=== PATIENT | male | born 1940 | race American Indian/Alaskan Native ===

== ENCOUNTER 2018-06-04 10:02 | Day surgery (SDC) | payer BC, MEDICARE ==
[2016-04-17 11:50] VITALS: PULSE 220
[2018-05-27 13:25] VITALS: BMI 21.1
[2018-06-04 11:21] LABS: BASO # 0.04 K/mm3 (0.0-2.0); BASO % 0.5 % (0.0-3.0); EOS # 0.1 (0.0-0.7); GRAN # 6.51 (1.4-6.5); GRAN % 77.3 % (50.0-68.0); LYMPH # 1.2 (1.2-3.4); LYMPH % 14.1 % (22.0-35.0); MEAN CELL VOLUME 76.2 fl (80.0-105.0); MEAN CORPUSCULAR HEMOGLOBIN 26.1 pg (25.0-35.0); MEAN CORPUSCULAR HGB CONC 34.2 g/dl (31.0-37.0); MEAN PLATELET VOLUME 10.2 fl (7.0-11.0); MONO # 0.6 (0.1-0.6); MONO % 7.1 % (1.0-6.0); RBC 3.83 10^6/uL (3.5-6.1); RED CELL DISTRIBUTION WIDTH 17.7 % (11.5-14.5); WHITE BLOOD COUNT 8.4 10^3/ul (4.5-11.0)
[2018-06-04 13:13] LABS: INR 1.18; PARTIAL THROMBOPLASTIN TIME 28.3 Seconds (25.1-36.5); PROTHROMBIN TIME 13.5 SECONDS (9.4-12.5)
[2018-06-04] MEDS ORDERED: Propofol 10 mg/ml Inj (20 ML) ONE (13:32)
[2018-06-04] MEDS ORDERED: Labetalol 5 mg/ml Inj 20ML ONE (13:32)
[2018-06-04 13:42] VITALS: O2SAT 100
[2018-06-04] MEDS ORDERED: Sodium Chloride 0.9% 1,000 ML IV SCH (14:30)
[2018-06-04 15:35] VITALS: PULSE 67; RESP 17; TEMP 97.6
[2018-06-04 15:36] VITALS: BP 139/86
== END 2018-06-04 15:49 | disposition home or self-care (01) ==
LOC: ENDO 10:02
PROVIDERS: ATTEND Internal Medicine Gastroenterology
DX: Z12.11 Encounter for screening for malignant neoplasm of colon (principal); Z85.038 Personal history of other malignant neoplasm of large intestine; K57.30 Diverticulosis of large intestine without perforation or abscess without bleeding; K64.8 Other hemorrhoids
CPT/HCPCS: 36415; 45378; 85025; 85610; 85730; J2704; J7030

== ENCOUNTER 2018-11-01 08:23 | Day surgery (SDC) | payer BC, MEDICARE ==
[2016-04-17 11:50] VITALS: PULSE 220
[2018-05-27 13:25] VITALS: BMI 21.1
[2018-11-01 09:27] LABS: BASO # 0.03 K/mm3 (0.0-2.0); BASO % 0.4 % (0.0-3.0); EOS # 0.2 (0.0-0.7); EOS % 2.7 % (1.5-5.0); HEMOGLOBIN 8.9 g/dL (14.0-18.0); LYMPH % 28.5 % (22.0-35.0); MEAN CELL VOLUME 74.7 fl (80.0-105.0); MEAN CORPUSCULAR HEMOGLOBIN 25.3 pg (25.0-35.0); MEAN CORPUSCULAR HGB CONC 33.8 g/dl (31.0-37.0); MEAN PLATELET VOLUME 9.7 fl (7.0-11.0); MONO # 0.6 (0.1-0.6); MONO % 8.5 % (1.0-6.0); RBC 3.52 10^6/uL (3.5-6.1); RED CELL DISTRIBUTION WIDTH 18.2 % (11.5-14.5); WHITE BLOOD COUNT 7.1 10^3/uL (4.5-11.0)
[2018-11-01 09:36] LABS: INR 1.21; PARTIAL THROMBOPLASTIN TIME 30.9 Seconds (26.9-38.3); PROTHROMBIN TIME 13.7 SECONDS (9.4-12.5)
[2018-11-01] MEDS ORDERED: Midazolam 2 MG/2 ML VIAL ONE (10:58)
[2018-11-01] MEDS ORDERED: Propofol 10 mg/ml Inj (20 ML) ONE (10:58)
[2018-11-01] MEDS ORDERED: Sodium Chloride 0.9% 1,000 ML IV SCH (11:30)
[2018-11-01 12:00] VITALS: PULSE 58
[2018-11-01 12:31] VITALS: BP 139/75; RESP 16; TEMP 97.9; O2SAT 58
== END 2018-11-01 13:39 | disposition home or self-care (01) ==
LOC: ENDO 08:23
PROVIDERS: ATTEND Internal Medicine Gastroenterology
DX: D64.9 Anemia, unspecified (principal); I25.10 Atherosclerotic heart disease of native coronary artery without angina pectoris; I48.91 Unspecified atrial fibrillation; Z85.038 Personal history of other malignant neoplasm of large intestine; Z79.01 Long term (current) use of anticoagulants; I12.9 Hypertensive chronic kidney disease with stage 1 through stage 4 chronic kidney disease, or unspecified chronic kidney disease; N18.9 Chronic kidney disease, unspecified
CPT/HCPCS: 36415; 43235; 85025; 85610; 85730; J2001; J2250; J2704; J7030; J7040

== ENCOUNTER 2019-01-12 12:27 | Inpatient (IN) | payer BC, MEDICARE ==
[2019-01-12 12:28] VITALS: PULSE 220
--- NOTE | 2019-01-12 13:32 | ED PDOC ---
Arrival/HPI - General Historian: Patient - History of Present Illness Narrative History of Present Illness (Text): 01/12/19 13:20 Patient is a 78yo M with PMH CAD s/p stent 2005, A.fib on coumadin, colon CA s/p resection and chemo 2012, CKD presents to ED with dizziness. Triage note reviewed, patient stating he felt generalized weakness and fatigue, but denies focal weakness in muscle use. He reports feeling dizzy when getting up and walking around this morning at 9am. He claims that the dizziness was mild and describes it as the room slightly spinning. He denies loss of consciousness or fall. He reports associated tingling in the L side of his face but denies difficulty eating or swallowing, slurred speech, or facial drooping. He also reports numbness in the L hand that began at the same time as the dizziness. He denies focal weakness. He reports a headache last night which was mild and resolved with tylenol. He reports resolution of all symptoms at this time, denying any current numbness, dizziness, or headache. He denies any gait changes, blurry vision, chest pain, palpitations, shortness of breath, nausea, vomiting, diarrhea, dysuria, blood in stool or urine. He reports taking his medications daily as prescribed and eating food and hydrating adequately. Time/Duration: 4-6 hours Symptom Onset: Sudden Symptom Course: Resolved Quality: Other (dizziness) Severity Level: Mild Activities at Onset: Other (walking) <Zayda Curiel - Last Filed: 01/12/19 18:57> <Peg Barry - Last Filed: 01/20/19 09:50> - General Chief Complaint: Dizziness/Lightheaded Time Seen by Provider: 01/12/19 13:05 Past Medical History - Tetanus Immunization Tetanus Immunization: Unknown - Cardiac Hx Atrial Fibrillation: Yes Hx Hypertension: Yes Hx Pacemaker: No - Neurological Hx Paralysis: No - HEENT Hx Epistaxis: Yes (NOSEBLEED IN PAST) - Renal Hx Renal Disorder: (low functioning kidneys) - Hematological/Oncological Hx Blood Transfusions: Yes Hx Blood Transfusion Reaction: No - Musculoskeletal/Rheumatological Hx Musculoskeletal Disorders: Yes - Gastrointestinal Hx Gastroesophageal Reflux: Yes - Genitourinary/Gynecological Hx Prostate Problems: Yes (enlarged) - Psychiatric Hx Emotional Abuse: No Hx Physical Abuse: No Hx Substance Use: No - Surgical History Hx Cardiac Catheterization: Yes Hx Coronary Stent: Yes - Anesthesia Hx Anesthesia Reactions: No Hx Malignant Hyperthermia: No - Suicidal Assessment Feels Threatened In Home Enviroment: No <Kaylynnmary katekeltonSusannahuanmatthew - Last Filed: 01/12/19 18:57> Family/Social History Family/Social History: Diabetes, CAD/[place] Smoking Status: Never Smoked Hx Alcohol Use: Yes (SOCIAL) Hx Substance Use: No Hx Substance Use Treatment: No <Zayda Curiel - Last Filed: 01/12/19 18:57> Allergies/Home Meds <Zayda Curiel - Last Filed: 01/12/19 18:57> <Peg Barry - Last Filed: 01/20/19 09:50> Allergies/Adverse Reactions: Allergies acetaminophen [From Percocet] Allergy (Verified 10/28/18 16:52) RASH metronidazole [From Flagyl] Allergy (Verified 10/28/18 16:52) RASH neomycin Allergy (Verified 10/28/18 16:52) RASH oxycodone [From Percocet] Allergy (Verified 10/28/18 16:52) RASH Home Medications: Home Meds Medication Instructions Recorded Confirmed Warfarin [Coumadin] 5 mg PO DAILY 03/31/13 01/12/19 Folic Acid 1 tab PO DAILY 05/27/18 01/12/19 Sodium Bicarbonate Tab 1 tab PO BID 05/27/18 01/12/19 Amiodarone [Cordarone] 100 mg PO DAILY 06/04/18 01/12/19 Multivit-Min/FA/Lycopen/Lutein 1 each PO DAILY 06/04/18 01/12/19 [Centrum Silver Men Tablet] Metoprolol Succinate XL [Toprol XL] 50 mg PO DAILY 10/28/18 01/12/19 Review of Systems - Review of Systems Constitutional: Fatigue Eyes: Normal. absent: Vision Changes ENT: Normal. absent: Hearing Changes, Tinnitus Respiratory: Normal. absent: SOB Cardiovascular: Normal. absent: Chest Pain, Palpitations, Syncope Gastrointestinal: Normal. absent: Abdominal Pain, Diarrhea, Nausea, Vomiting, Hematochezia, Food Intolerance Genitourinary Male: Normal. absent: Dysuria, Hematuria Musculoskeletal: Normal. absent: Neck Pain Skin: Normal Neurological: Normal. absent: Headache, Dizziness, Focal Weakness, Gait Ivzcaino es, Speech Changes, Facial Droop Endocrine: Normal Hemo/Lymphatic: Normal Psychiatric: Normal <Susanna Curielmeliton - Last Filed: 01/12/19 18:57> Physical Exam Vital Signs Reviewed: Yes Vital Signs Temp Pulse Resp BP Pulse Ox 01/12/19 12:28 97.4 F L 60 18 210/112 H 100 Temperature: Afebrile Blood Pressure: Hypertensive Pulse: Regular Respiratory Rate: Normal Appearance: Positive for: Well-Appearing Pain Distress: None Finger Stick Blood Glucose: 84 - Systems Exam Head: Present: Atraumatic, Normocephalic Pupils: Present: PERRL Extroacular Muscles: Present: EOMI Conjunctiva: Present: Normal Mouth: Present: Moist Mucous Membranes Neck: Present: Normal Range of Motion Respiratory/Chest: Present: Clear to Auscultation, Good Air Exchange. No: Respiratory Distress, Accessory Muscle Use Cardiovascular: Present: Regular Rate and Rhythm, Normal S1, S2. No: Murmurs, Rub, Gallop Abdomen: Present: Normal Bowel Sounds. No: Tenderness, Distention, Peritoneal Signs Upper Extremity: Present: Normal Inspection, Normal ROM, Neurovascularly Intact, Norm 2-Pt Discrimination. No: Cyanosis, Edema, Tenderness, Swelling, Erythema Lower Extremity: Present: Normal Inspection, Normal ROM, Neurovascularly Intact. No: Edema, CALF TENDERNESS, Cyanosis, Erythema, Deformity Neurological: Present: GCS=15, CN II-XII Intact, Speech Normal, Motor Func Grossly Intact, Normal Sensory Function, Norm Deep Tendon Reflexes Skin: Present: Warm, Normal Color. No: Dry, Rashes Psychiatric: Present: Alert, Oriented x 3, Normal Insight, Normal Concentration <VeenaSusannameliton - Last Filed: 01/12/19 18:57> Vital Signs Temp Pulse Resp BP Pulse Ox 01/12/19 12:28 97.4 F L 60 18 210/112 H 100 <Peg Barry - Last Filed: 01/20/19 09:50> Medical Decision Making ED Course and Treatment: 01/12/19 13:50 DDX: TIA vs CVA, vertebral artery insufficiency, orthostatic hypotension Code Stroke -CT head w/o contrast -CBC/CMP -lipid panel -troponins -f/u Neurohospitalist recs -EKG: NSR @62bpm 01/12/19 14:02 Dr. Grover called at 13:55, requesting MRI brain w/o contrast and CTA head/neck 01/12/19 14:26 CT head read, no acute intracranial abnormalities as per official report. 01/12/19 14:51 Patient remains hypertensive, will give Hydralazine 10mg IVP 01/12/19 15:09 BP improved to 202/98. 01/12/19 15:35 K+ 6.2 Cr 8.8 Will give amp D50, amp sodium bicarb, amp Calcium gluconate, albuterol, and 10u insulin 01/12/19 15:[address] Yates who accepts this admission. 01/12/19 16:[address] Grover at 14:05 discussed MRI findings of small L anterior frontal infarcts. BP 177/97 at this time. As per Dr. Grover, goal BP 180/90. <Zayda Curiel - Last Filed: 01/12/19 18:57> ED Course and Treatment: NIH score 0 at time of presentation to the ED. Patient had minimal symptoms of tingling in left hand and left side of face which had resolved upon arrival to the ED. Patient declined ASA. 01/12/19 14:19 Patient Seen with Resident: In agreement with resident note which contains more details about the patient. Patient seen and evaluated with resident. Came up with plan and treatment together. 01/20/19 09:49 - RAD Interpretation Radiology Orders: 01/12/19 13:33 CHEST PORTABLE [RAD] Stat 01/12/19 13:41 HEAD W/O (CODE STROKE) [CT] Stat 01/12/19 14:00 CTA HEAD/NECK CODE STROKE [CT] Stat BRAIN WITHOUT CONTRAST [MRI] Stat - Medication Orders Current Medication Orders: Sodium Chloride (Sodium Chloride 0.9%) 1,000 mls @ 100 mls/hr IV .Q10H DILSHAD Discontinued Medications Labetalol HCl (Trandate) 10 mg IV STAT STA Stop: 01/12/19 13:48 <Peg Barry - Last Filed: 01/20/19 09:50> NIHSS Scale ([place]) Time Performed: 01:20 - Notes Notes: NIHSS score 0 <Zayda Curiel - Last Filed: 01/12/19 18:57> rTPA Inclusion/Exclusion - Inclusion Criteria for Altepase All of the below criteria for inclusion were reviewed: No Patient is 18 years or Older: Yes The Clinical Diagnosis of Ischemic Stroke That is Causing a Potentially Disabling Neurological Deficit: No Time of Onset is Well Established to be Less Than 270 Minute Before Treatment Would Begin: Yes Risk/Benefit Discussed With Patient/Family Member Present: No - Exclusion Criteria for Altepase Current Intracranial Hemorrhage: No Subarachnoid hemorrhage: No Active Internal Bleeding: No Recent (within 3 months) Intracranial or Intraspinal Surgery: No Bleeding Diathesis Including but not limited to: Current use of oral anticoagulants w/ INR greater than 1.7 Current Severe Uncontrolled Hypertension: Yes - Warning to TPA With Conditions Following Conditions Weighed Against Anticipated Benefit: Yes Condition: Hypertension systolic BP above 175 mmHg or diastolic BP above 110 mmHg, Patients currently receiving anticoagulants Additional Condition (For 3-4.5 Hour Window): Any anticoagulant use prior to admission (Even if INR less than 1.7) <Peg Barry - Last Filed: 01/20/19 09:50> - PA / BLENDING OPERATOR / Resident Statement ADRYAN has reviewed & agrees with the documentation as recorded. ADRYAN has examined the patient and agrees with the treatment plan. <Peg Barry - Last Filed: 01/20/19 09:50> Disposition/Present on Arrival - Present on Arrival Any Indicators Present on Arrival: No History of DVT/PE: No History of Uncontrolled Diabetes: No Urinary Catheter: No History of Decub. Ulcer: No History Surgical Site Infection Following: None - Disposition Have Diagnosis and Disposition been Completed?: Yes Disposition Time: 16:00 <Zayda Curiel - Last Filed: 01/12/19 18:57> <Peg Barry - Last Filed: 01/20/19 09:50> - Disposition Diagnosis: CVA (cerebral vascular accident), Hyperkalemia Disposition: HOSPITALIZED Patient Problems: Current Active Problems Problem Status Onset CVA (cerebral vascular accident) Acute ESRD (end stage renal disease) Chronic Hyperkalemia Resolved Condition: STABLE
[2019-01-12] MEDS ORDERED: Labetalol 5 mg/ml Inj 20ML IV STA (13:47)
[2019-01-12] MEDS ORDERED: Iodixanol 320 MG/ML 100 ML BOTTLE IV ONE ×2 (14:15)
--- NOTE | 2019-01-12 14:24 | RAD ---
HISTORY: Code Stroke COMPARISON: Chest x-ray performed 09/09/13 TECHNIQUE: Chest, one view. FINDINGS: LUNGS: No focal consolidation. Please note that chest x-ray has limited sensitivity for the detection of pulmonary masses. PLEURA: No significant pleural effusion identified. No definite pneumothorax . CARDIOVASCULAR: Heart size appears within normal limits. Atherosclerotic calcifications of the aortic knob. OSSEOUS STRUCTURES: No acute osseous abnormality identified. VISUALIZED UPPER ABDOMEN: Unremarkable. OTHER FINDINGS: None. IMPRESSION: No acute findings identified.
[2019-01-12 14:38] LABS: BASO # 0.06 K/mm3 (0.0-2.0); BASO % 1.1 % (0.0-3.0); EOS # 0.2 (0.0-0.7); EOS % 4.1 % (1.5-5.0); HEMOGLOBIN 12.9 g/dL (14.0-18.0); LYMPH % 35.2 % (22.0-35.0); MEAN CELL VOLUME 74.5 fl (80.0-105.0); MEAN CORPUSCULAR HEMOGLOBIN 24.7 pg (25.0-35.0); MEAN CORPUSCULAR HGB CONC 33.2 g/dl (31.0-37.0); MEAN PLATELET VOLUME 9.3 fl (7.0-11.0); MONO # 0.5 (0.1-0.6); MONO % 9.4 % (1.0-6.0); RBC 5.22 10^6/uL (3.5-6.1); WHITE BLOOD COUNT 5.7 10^3/uL (4.5-11.0)
[2019-01-12 14:47] LABS: INR 2.37; PARTIAL THROMBOPLASTIN TIME 36.8 Seconds (26.9-38.3); PROTHROMBIN TIME 26.3 SECONDS (9.4-12.5)
[2019-01-12] MEDS: Sodium Chloride 0.9% 1,000 ML IV SCH (14:54)
[2019-01-12 14:59] LABS: LDL CHOLESTEROL 111 mg/dL (0-129)
[2019-01-12 15:02] LABS: TROPONIN I < 0.01 ng/mL
[2019-01-12 15:21] LABS: ALB/GLOB RATIO 1.1 (1.1-1.8); ALBUMIN 4.4 g/dL (3.0-4.8); ALT/SGPT 7 U/L (7-56); AST/SGOT 24 U/L (17-59); BLOOD UREA NITROGEN 44 mg/dL (7-21); CALCIUM 7.9 mg/dL (8.4-10.5); GFR NON-AFRICAN AMERICAN 6; HDL CHOLESTEROL 89 mg/dL (29-60)
--- NOTE | 2019-01-12 15:21 | ED PDOC ---
Arrival/HPI - General Chief Complaint: Dizziness/Lightheaded Time Seen by Provider: 01/12/19 13:05 Past Medical History - Tetanus Immunization Tetanus Immunization: Unknown - Cardiac Hx Atrial Fibrillation: Yes Hx Hypertension: Yes Hx Pacemaker: No - Neurological Hx Paralysis: No - HEENT Hx Epistaxis: Yes (NOSEBLEED IN PAST) - Renal Hx Renal Disorder: (low functioning kidneys) - Hematological/Oncological Hx Blood Transfusions: Yes Hx Blood Transfusion Reaction: No - Musculoskeletal/Rheumatological Hx Musculoskeletal Disorders: Yes - Gastrointestinal Hx Gastroesophageal Reflux: Yes - Genitourinary/Gynecological Hx Prostate Problems: Yes (enlarged) - Psychiatric Hx Emotional Abuse: No Hx Physical Abuse: No Hx Substance Use: No - Surgical History Hx Cardiac Catheterization: Yes Hx Coronary Stent: Yes - Anesthesia Hx Anesthesia Reactions: No Hx Malignant Hyperthermia: No - Suicidal Assessment Feels Threatened In Home Enviroment: No Family/Social History Family/Social History: Diabetes, CAD/[place] Smoking Status: Never Smoked Hx Alcohol Use: Yes (SOCIAL) Hx Substance Use: No Hx Substance Use Treatment: No Allergies/Home Meds Allergies/Adverse Reactions: Allergies acetaminophen [From Percocet] Allergy (Verified 10/28/18 16:52) RASH metronidazole [From Flagyl] Allergy (Verified 10/28/18 16:52) RASH neomycin Allergy (Verified 10/28/18 16:52) RASH oxycodone [From Percocet] Allergy (Verified 10/28/18 16:52) RASH Home Medications: Home Meds Medication Instructions Recorded Confirmed Warfarin [Coumadin] 5 mg PO DAILY 03/31/13 01/12/19 Folic Acid 1 tab PO DAILY 05/27/18 01/12/19 Sodium Bicarbonate Tab 1 tab PO BID 05/27/18 01/12/19 Amiodarone [Cordarone] 100 mg PO DAILY 06/04/18 01/12/19 Multivit-Min/FA/Lycopen/Lutein 1 each PO DAILY 06/04/18 01/12/19 [Centrum Silver Men Tablet] Metoprolol Succinate XL [Toprol XL] 50 mg PO DAILY 10/28/18 01/12/19 Physical Exam Vital Signs Temp Pulse Resp BP Pulse Ox 01/12/19 14:54 203/98 H 01/12/19 14:38 60 210/103 H 01/12/19 14:30 218/110 H 01/12/19 12:28 97.4 F L 60 18 210/112 H 100 Finger Stick Blood Glucose: 84 Medical Decision Making - Lab Interpretations Lab Results: PT 26.3 SECONDS (9.4-12.5) H 01/12/19 14:24 INR 2.37 01/12/19 14:24 APTT 36.8 Seconds (26.9-38.3) 01/12/19 14:24 Troponin I < 0.01 ng/mL D 01/12/19 14:24 Total Bilirubin 0.4 mg/dL (0.2-1.3) 01/12/19 14:24 AST 24 U/L (17-59) 01/12/19 14:24 ALT 7 U/L (7-56) 01/12/19 14:24 Alkaline Phosphatase 111 U/L (38-126) 01/12/19 14:24 Total Protein 8.3 g/dL (5.8-8.3) 01/12/19 14:24 Albumin 4.4 g/dL (3.0-4.8) 01/12/19 14:24 Globulin 3.9 gm/dL 01/12/19 14:24 Albumin/Globulin Ratio 1.1 (1.1-1.8) 01/12/19 14:24 - RAD Interpretation Radiology Orders: 01/12/19 13:33 CHEST PORTABLE [RAD] Stat 01/12/19 13:41 HEAD W/O (CODE STROKE) [CT] Stat 01/12/19 14:00 CTA HEAD/NECK CODE STROKE [CT] Stat BRAIN WITHOUT CONTRAST [MRI] Stat - Medication Orders Current Medication Orders: Sodium Chloride (Sodium Chloride 0.9%) 1,000 mls @ 100 mls/hr IV .Q10H [facility] Last Admin: 01/12/19 14:54 Dose: 100 mls/hr eMAR Start Stop Document 01/12/19 14:54 BB (Rec: 01/12/19 14:54 BB [id number]) Intravenous Solution Start Date 01/12/19 Start Time 14:54 Discontinued Medications Hydralazine HCl (Apresoline) 10 mg IVP ONCE ONE Stop: 01/12/19 14:33 Last Admin: 01/12/19 14:38 Dose: 10 mg IVP Administration Document 01/12/19 14:38 BB (Rec: 01/12/19 14:53 BB [id number]) Charges for Administration # of IVP Administrations 1 MAR Pulse and Blood Pressure Document 01/12/19 14:38 BB (Rec: 01/12/19 14:53 [id number] Pulse Pulse Rate (60-90) 60 Blood Pressure Blood Pressure (100/60-150/90) 210/103 Disposition/Present on Arrival - Present on Arrival History of DVT/PE: No History of Uncontrolled Diabetes: No Urinary Catheter: No History of Decub. Ulcer: No History Surgical Site Infection Following: None - Disposition Forms: [employer] (Citizen [place])
[2019-01-12] MEDS ORDERED: Sodium Bicarbonate (8.4%) 50 Meq Syringe IVP ONE (15:32)
[2019-01-12] MEDS ORDERED: Dextrose 50% SYRINGE Inj (50 ml) IVP STA (15:32)
[2019-01-12] MEDS ORDERED: Albuterol 0.042% Inhal Sol (1.25 mg/3 mL) UD IH STA (15:32)
[2019-01-12] MEDS ORDERED: Insulin Regular 1 UNITS/0.01 ML ML SC ONE (15:32)
--- NOTE | 2019-01-12 15:41 | CT ---
Date of service: 01/12/2019 PROCEDURE: CT Angiography of the neck with contrast HISTORY: dizziness, numbness in L hand COMPARISON: None. TECHNIQUE: Contiguous axial images of the neck were obtained from the level of the skull-base to the superior mediastinum in the arteriographic phase of enhancement. Coronal and sagittal reformats or also generated. IV contrast dose: 100 cc of Visipaque 320 Radiation dose: Total exam DLP = 448.35 mGy-cm. This CT exam was performed using one or more of the following dose reduction techniques: Automated exposure control, adjustment of the mA and/or kV according to patient size, and/or use of iterative reconstruction technique. FINDINGS: RIGHT CAROTID ARTERIES: Calcified plaque at the bifurcation with no significant stenosis LEFT CAROTID ARTERIES: Calcified plaque at the bifurcation with no significant stenosis VERTEBRAL ARTERIES: Right Vertebral Artery: Normal. Left Vertebral Artery: Normal. OTHER FINDINGS: no aortic atherosclerotic calcification or mural plaque present. IMPRESSION: Normal CT Angiography of the neck. PROCEDURE: CT Angiography of the Brain. HISTORY: dizziness, numbness in L hand COMPARISON: None available. TECHNIQUE: CT angiography of the intracranial arteries was performed. Coronal and sagittal maximum intensity projection reformated images were generated. Radiation dose: Total exam DLP = 448.35 mGy-cm. This CT exam was performed using one or more of the following dose reduction techniques: Automated exposure control, adjustment of the mA and/or kV according to patient size, and/or use of iterative reconstruction technique. FINDINGS: INTERNAL CEREBRAL ARTERIES: Unremarkable. The skull base, petrous, cavernous and supraclinoid segments are bilaterally widely patent. ANTERIOR CEREBRAL ARTERIES: Unremarkable. A1 and A2 segments are widely patent. Smaller distal branches unremarkable, as visualized. MIDDLE CEREBRAL ARTERIES: Unremarkable. M1 and M2 segments are widely patent. Perisylvian branches grossly symmetric. POSTERIOR CIRCULATION: Basilar Artery: Unremarkable. Distal Vertebral Arteries: Unremarkable. Posterior Cerebral Arteries: Unremarkable. Posterior Inferior Cerebellar Arteries: Unremarkable. ANEURYSM/ VASCULAR MALFORMATIONS: None. OTHER FINDINGS: None. IMPRESSION: Unremarkable CT Angiography of the Brain.
--- NOTE | 2019-01-12 15:44 | MRI ---
Date of service: 01/12/2019 PROCEDURE: MRI BRAIN WITHOUT CONTRAST HISTORY: dizziness, numbness in L hand COMPARISON: None available. TECHNIQUE: Multiplanar, multisequence MR images of the brain were obtained without intravenous contrast enhancement. FINDINGS: HEMORRHAGE: None DWI: Very small areas of restricted diffusion are seen in the left for anterior frontal white matter image 17 and in the left side of the antoine image 9. Findings are consistent with small acute infarcts. BRAIN PARENCHYMA: No mass effect or edema. Chronic microvascular changes are seen in the periventricular white matter VENTRICLES: Unremarkable. No hydrocephalus. CRANIUM: Unremarkable. ORBITS: Grossly unremarkable. PARANASAL SINUSES/MASTOIDS: Clear VASCULAR SYSTEM: Skull base flow voids intact. OTHER FINDINGS: None. IMPRESSION: Small foci of restricted diffusion in the left side of the antoine and the left anterior frontal white matter consistent with acute infarcts. There are no territorial infarcts seen.
[2019-01-12] MEDS ORDERED: Labetalol 5mg/ml (4ml) IV STA (16:08)
--- NOTE | 2019-01-12 18:37 | CARD ---
APPROVED REPORT Date of service: 01/12/2019 EKG Measurement Heart [id number] <Conclusion> Normal sinus rhythm LVH. Non Specific ST-T Changes. Tall Peaked T Waves R/O Hyperkalaemia.
[2019-01-12] MEDS ORDERED: Albuterol 0.083% Inhal Sol (2.5 mg/3 mL) UD IH STA ×2 (18:53→18:57)
[2019-01-12 19:20] LABS: URINE BILIRUBIN NEGATIVE (NEGATIVE); URINE BLOOD SMALL (NEGATIVE); URINE GLUCOSE (UA) 100 mg/dL (NEGATIVE); URINE LEUKOCYTE ESTERASE NEGATIVE Leu/uL (NEGATIVE); URINE PROTEIN 100 mg/dL (<30 mg/dL); URINE UROBILINOGEN 0.2 E.U./dL (<1 E.U./dL)
[2019-01-12 19:23] LABS: URINE APPEARANCE CLEAR (CLEAR); URINE COLOR YELLOW (YELLOW)
[2019-01-12 19:31] LABS: URINE BACTERIA FEW /hpf
[2019-01-12] MEDS ORDERED: Dextrose 50% SYRINGE Inj (50 ml) ONE (19:57)
--- NOTE | 2019-01-13 00:29 | HP ---
DATE OF EXAM: 01/12/2019 ADMISSION HISTORY AND PHYSICAL HISTORY OF PRESENT ILLNESS: The patient is a 78-year-old male who presented through the emergency department today complaining of 1-day history of dizziness, left-sided facial tingling and numbness as well as left arm numbness. He denies any loss of consciousness, slurred speech or facial droop. There is no chest pain or shortness of breath. He did report a headache the previous evening. CT angiogram is negative. MRI of the brain shows small left pontine and frontal infarcts which are acute. The patient is admitted for further evaluation and management. Code Stroke was called. PAST MEDICAL HISTORY: Includes hypertension, paroxysmal atrial fibrillation, end-stage kidney disease, coronary artery disease status post stent placement in the remote past, degenerative joint disease due to gout, hypercholesterolemia. PAST SURGICAL HISTORY: Includes status post resection of the colon for adenocarcinoma several years ago. ALLERGIES: THE PATIENT HAS ALLERGIES TO ACETAMINOPHEN, METRONIDAZOLE, NEOMYCIN AND OXYCODONE WITH WHICH HE GETS A RASH. MEDICATIONS: Include Coumadin 5 mg daily, folic acid 1 mg daily, sodium bicarbonate 1 tablet twice daily, amiodarone 100 mg daily, a multivitamin and Toprol XL 50 mg daily. FAMILY HISTORY: Noncontributory. SOCIAL HISTORY: The patient has no history of alcohol or tobacco use. REVIEW OF SYSTEMS: The patient denies any chest pain, shortness of breath, swelling of the legs. There is no cough. No fever, chills. No hemoptysis. No nausea, vomiting, no diarrhea. No melena, no bright red blood per rectum. No jaundice or rash. PHYSICAL EXAMINATION GENERAL: The patient is a well-developed male in no acute distress. VITAL SIGNS: Blood pressure 203/98, pulse 60, temperature 97.4, respiratory rate 18. HEENT: Head is normocephalic, atraumatic. Pupils equal, round and reactive to light. Extraocular movements are intact. NECK: Supple with no thyromegaly. No carotid bruits. No adenopathy. LUNGS: Clear. HEART: Regular rate and rhythm. ABDOMEN: Soft, nontender. Bowel sounds are normoactive. EXTREMITIES: Without cyanosis, clubbing or edema. NEUROLOGIC: The patient is awake and oriented x3 without focal sensory or motor deficits. SKIN: Warm and dry. IMPRESSION 1. Rule out of cerebrovascular accident/acute left pontine and frontal infarcts. 2. Paroxysmal atrial fibrillation. 3. Coronary artery disease status post stent placement (2005). 4. Hypertension. 5. End-stage kidney disease. 6. Degenerative joint disease/gout. 7. History of adenocarcinoma of the colon status post resection. PLAN The patient is admitted for further evaluation and treatment. Neurology consultation. We will obtain Renal consultation and monitor for signs and symptoms of stroke progression. Cautious blood pressure control. Keshawn Yates JD/
[2019-01-13 03:03] VITALS: BMI 20.8
[2019-01-13] MEDS: Sodium Chloride 0.9% 1,000 ML IV SCH ×3 (05:13→22:00)
--- NOTE | 2019-01-13 09:21 | CP.PCM.PN ---
Subjective - Date & Time of Evaluation Date of Evaluation: 01/13/19 Time of Evaluation: 09:00 - Subjective Subjective: resting comfortably, NAD Objective - Vital Signs/Intake and Output Vital Signs (last 24 hours): Temp Pulse Resp BP Pulse Ox 98.2 F 68 18 150/95 H 98 01/13/19 06:00 01/13/19 06:00 01/13/19 06:00 01/13/19 06:00 01/13/19 06:00 Intake and Output: 01/13/19 01/13/19 06:59 18:59 Intake Total 840 Output Total 1400 Balance -560 - Medications Medications: Current Medications Sodium Chloride (Sodium Chloride 0.9%) 1,000 mls @ 100 mls/hr IV .Q10H DILSHAD Last Admin: 01/13/19 05:13 Dose: 100 mls/hr - Labs Labs: 01/12/19 14:24 01/12/19 14:24 PT 26.3 SECONDS (9.4-12.5) H 01/12/19 14:24 INR 2.37 01/12/19 14:24 APTT 36.8 Seconds (26.9-38.3) 01/12/19 14:24 - Respiratory Exam Respiratory Exam: Clear to Ausculation Bilateral, NORMAL BREATHING PATTERN - Cardiovascular Exam Cardiovascular Exam: REGULAR RHYTHM - GI/Abdominal Exam GI & Abdominal Exam: Soft, Normal Bowel Sounds - Extremities Exam Extremities Exam: Normal Inspection - Neurological Exam Neurological Exam: Alert, Awake, CN II-XII Intact, Oriented x3 Neuro motor strength exam: Left Upper Extremity: 5, Right Upper Extremity: 5, Left Lower Extremity: 5, Right Lower Extremity: 5 - Skin Skin Exam: Dry, Warm Assessment and Plan (1) CVA (cerebral vascular accident) Status: Acute (2) ESRD (end stage renal disease) Status: Chronic - Assessment and Plan (Free Text) Plan: monitor neuro status, renal consult
--- NOTE | 2019-01-13 10:09 | US ---
Date of service: 01/12/2019 PROCEDURE: Ultrasound of the Kidneys HISTORY: [facility] COMPARISON: 10/11/2012. Pelvic ultrasound. TECHNIQUE: Sonogram of the kidneys. FINDINGS: RIGHT KIDNEY: Measures: 4.2 x 6.6 cm. Mildly atrophic right kidney, increased echogenicity. No stone, solid mass lesion or hydronephrosis visualized. Incidental cyst 7 x 8 mm. LEFT KIDNEY: Measures: 3.9 x 7.6 cm. Mildly echogenic left kidney, increased echogenicity. No stone, solid mass lesion or hydronephrosis visualized. Incidental midpole cyst 6 x 9 mm. Additional smaller exophytic cyst 6 x 8 mm. OTHER FINDINGS: None. IMPRESSION: No acute or significant findings related to/ accounting for the clinical presentation. Additional benign and/or incidental findings described above. No significant interval change compared to the prior examination(s). Findings consistent with medical renal disease. Concordant findings (preliminary report) provided by [facility].
[2019-01-13] MEDS: Metoprolol Succinate 50 mg XL Tab PO SCH (10:51)
--- NOTE | 2019-01-13 13:15 | CP.PCM.CON ---
History of Present Illness - History of Present Illness History of Present Illness: Surgery Consult Note for Dr. Kahn Consult: AV fistula HPI: 78 year old male, past medical history significant for HTN, Afib on coumadin, CAD s/p PCI, DJD, gout, HLD, and ESRD, consulted for arterio-venous fistula for future dialysis. Patient admitted to the hospital after experiencing weakness and numbness/tingling in his extremities. 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 Zhao, who monitors his creatinine and potassium levels every few months. Recently started on a new medication Veltassa which lowers potassium. Patient states he is still able to void on his own, however noticed decreased quantity as of late. No burning, difficulty, or pain with urination. Patient has never received dialysis. ROS negative, except as stated above. PMH: See above PSH: Partial colectomy 2/2 adenorcarcinoma, port-a-cath for chemotherapy in 2012 FH: Father passed from heart disease SH: Denies tobacco, alcohol, or illicit drug use. Patient works with [employer] security. ALL: Neomycin, percocet Meds: See MAR Heme/Onc: Dr. Finn Review of Systems - Constitutional Constitutional: Weakness. absent: Chills, Fever - EENT Eyes: absent: Blurred Vision, Change in Vision Nose/Mouth/Throat: absent: Nasal Congestion, Nasal Discharge - Cardiovascular Cardiovascular: absent: Chest Pain, Dyspnea - Respiratory Respiratory: absent: Cough, Dyspnea - Gastrointestinal Gastrointestinal: absent: Abdominal Pain, Nausea, Vomiting - Genitourinary Genitourinary: absent: Difficulty Urinating, Dysuria, Flank Pain, Hematuria, Voiding Freq/Small Amts - Musculoskeletal Musculoskeletal: Numbness, Tingling. absent: Back Pain, Neck Pain - Integumentary Integumentary: absent: Bleeding Lesions, Changing Lesions - Neurological Neurological: absent: Confusion, Dizziness - Psychiatric Psychiatric: absent: Anxiety, Depression Past Patient History - Tetanus Immunizations Tetanus Immunization: Unknown - Past Social History Smoking Status: Never Smoked - CARDIAC Hx Cardiac Disorders: No Hx Hypertension: Yes Other/Comment: Afib noted - PULMONARY Hx Respiratory Disorders: No - NEUROLOGICAL Hx Neurological Disorder: No - HEENT Hx HEENT Problems: Yes (nosebleed in the past) - RENAL Hx Chronic Kidney Disease: No - ENDOCRINE/METABOLIC Hx Endocrine Disorders: No - HEMATOLOGICAL/ONCOLOGICAL Hx Blood Disorders: No - INTEGUMENTARY Hx Dermatological Problems: No - MUSCULOSKELETAL/RHEUMATOLOGICAL Hx Musculoskeletal Disorders: Yes Hx Falls: No - GASTROINTESTINAL Other/Comment: Gastro reflux - GENITOURINARY/GYNECOLOGICAL Hx Genitourinary Disorders: No - PSYCHIATRIC Hx Psychophysiologic Disorder: No - SURGICAL HISTORY Hx Surgeries: Yes Other/Comment: Cornary stent,cardiac cath - ANESTHESIA Hx Anesthesia Reactions: No Hx Malignant Hyperthermia: No Meds Allergies/Adverse Reactions: Allergies Allergy/AdvReac Type Severity Reaction Status Date / Time acetaminophen [From Percocet] Allergy RASH Verified 10/28/18 16:52 metronidazole [From Flagyl] Allergy RASH Verified 10/28/18 16:52 neomycin Allergy RASH Verified 10/28/18 16:52 oxycodone [From Percocet] Allergy RASH Verified 10/28/18 16:52 - Medications Medications: Current Medications Amiodarone HCl (Cordarone) 100 mg PO QAM [facility] Last Admin: 01/13/19 10:52 Dose: 100 mg Aspirin (Aspirin) 325 mg PO DAILY [facility] Folic Acid (Folic Acid) 1 mg PO DAILY [facility] Last Admin: 01/13/19 10:51 Dose: 1 mg Sodium Chloride (Sodium Chloride 0.9%) 1,000 mls @ 100 mls/hr IV .Q10H [facility] Last Admin: 01/13/19 10:51 Dose: 100 mls/hr Metoprolol Succinate (Toprol Xl) 50 mg PO BRK [facility] Last Admin: 01/13/19 10:51 Dose: 50 mg Sodium Bicarbonate (Sodium Bicarbonate Tab) 650 mg PO BID [facility] Last Admin: 01/13/19 10:51 Dose: 650 mg Warfarin Sodium (Coumadin) 5 mg PO 1800 [facility]; Protocol Physical Exam - Constitutional Appears: Well, Non-toxic, No Acute Distress - Head Exam Head Exam: ATRAUMATIC, NORMAL INSPECTION, NORMOCEPHALIC - Eye Exam Eye Exam: EOMI Pupil Exam: PERRL - ENT Exam ENT Exam: Mucous Membranes Dry - Respiratory Exam Respiratory Exam: NORMAL BREATHING PATTERN. absent: Wheezes, Respiratory Dis tress - Cardiovascular Exam Cardiovascular Exam: Irregular Rhythm. absent: Tachycardia - GI/Abdominal Exam GI & Abdominal Exam: Normal Bowel Sounds, Soft. absent: Distended, Guarding, Pulsatile Mass, Rebound, Tenderness - Extremities Exam Extremities exam: Positive for: normal inspection, pedal pulses present Additional comments: palpable radial/ulnar, brachial pulses bilaterally - Back Exam Back exam: absent: CVA tenderness (L), CVA tenderness (R) - Neurological Exam Neurological exam: Alert, Oriented x3 - Psychiatric Exam Psychiatric exam: Normal Affect, Normal Mood - Skin Skin Exam: Dry, Intact, Normal Color, Warm Results - Vital Signs Recent Vital Signs: Last Vital Signs Temp 98.2 F 01/13/19 12:00 Pulse 78 01/13/19 12:00 Resp 20 01/13/19 12:00 BP 187/99 H 01/13/19 12:00 Pulse Ox 98 01/13/19 06:00 - Labs Result Diagrams: 01/13/19 13:10 01/12/19 14:24 Labs: Laboratory Results - last 24 hr 01/12/19 01/12/19 01/12/19 14:24 14:24 14:24 WBC 5.7 RBC 5.22 Hgb 12.9 L D Hct 38.9 L MCV 74.5 L MCH 24.7 L MCHC 33.2 RDW 21.0 H Plt Count 276 MPV 9.3 Neut % (Auto) 50.2 Lymph % (Auto) 35.2 H Moca % (Auto) 9.4 H Eos % (Auto) 4.1 Baso % (Auto) 1.1 Lymph # (Auto) 2.0 Moca # (Auto) 0.5 Eos # (Auto) 0.2 Baso # (Auto) 0.06 Absolute Neuts (auto) 2.85 PT 26.3 H INR 2.37 APTT 36.8 Sodium 139 Potassium 6.2 H* D Chloride 112 H Carbon Dioxide 17 L Anion Gap 16 BUN 44 H Creatinine 8.8 H* Est GFR ( Amer) 7 Est GFR (Non-Af Amer) 6 POC Glucose (mg/dL) Random Glucose 88 Hemoglobin A1c Calcium 7.9 L Phosphorus Total Bilirubin 0.4 AST 24 ALT 7 Alkaline Phosphatase 111 Troponin I < 0.01 D Total Protein 8.3 Albumin 4.4 Globulin 3.9 Albumin/Globulin Ratio 1.1 Triglycerides 187 H Cholesterol 262 H LDL Cholesterol Direct 111 HDL Cholesterol 89 H Urine Color Urine Appearance Urine pH Ur Specific [place] Urine Protein Urine Glucose (UA) Urine Ketones Urine Blood Urine Nitrate Urine Bilirubin Urine Urobilinogen Ur Leukocyte Esterase Urine RBC Urine WBC Ur Epithelial Cells Urine Bacteria Blood Type Antibody Screen BBK History Checked 01/12/19 01/12/19 01/12/19 14:24 14:24 14:24 WBC RBC Hgb Hct MCV MCH MCHC RDW Plt Count MPV Neut % (Auto) Lymph % (Auto) Moca % (Auto) Eos % (Auto) Baso % (Auto) Lymph # (Auto) Moca # (Auto) Eos # (Auto) Baso # (Auto) Absolute Neuts (auto) PT INR APTT Sodium Potassium Chloride Carbon Dioxide Anion Gap BUN Creatinine Est GFR ( Amer) Est GFR (Non-Af Amer) POC Glucose (mg/dL) Random Glucose Hemoglobin A1c 4.6 Calcium Phosphorus 4.8 H Total Bilirubin AST ALT Alkaline Phosphatase Troponin I Total Protein Albumin Globulin Albumin/Globulin Ratio Triglycerides Cholesterol LDL Cholesterol Direct HDL Cholesterol Urine Color Urine Appearance Urine pH Ur Specific [place] Urine Protein Urine Glucose (UA) Urine Ketones Urine Blood Urine Nitrate Urine Bilirubin Urine Urobilinogen Ur Leukocyte Esterase Urine RBC Urine WBC Ur Epithelial Cells Urine Bacteria Blood Type B POSITIVE Antibody Screen Negative BBK History Checked Patient has bt 01/12/19 01/12/19 01/13/19 19:02 20:24 07:21 WBC RBC Hgb Hct MCV MCH MCHC RDW Plt Count MPV Neut % (Auto) Lymph % (Auto) Moca % (Auto) Eos % (Auto) Baso % (Auto) Lymph # (Auto) Moca # (Auto) Eos # (Auto) Baso # (Auto) Absolute Neuts (auto) PT INR APTT Sodium Potassium Chloride Carbon Dioxide Anion Gap BUN Creatinine Est GFR ( Amer) Est GFR (Non-Af Amer) POC Glucose (mg/dL) 193 H 80 Random Glucose Hemoglobin A1c Calcium Phosphorus Total Bilirubin AST ALT Alkaline Phosphatase Troponin I Total Protein Albumin Globulin Albumin/Globulin Ratio Triglycerides Cholesterol LDL Cholesterol Direct HDL Cholesterol Urine Color Yellow Urine Appearance Clear Urine pH 6.0 Ur Specific [place] 1.025 Urine Protein 100 H Urine Glucose (UA) 100 H Urine Ketones Negative Urine Blood Small H Urine Nitrate Negative Urine Bilirubin Negative Urine Urobilinogen 0.2 Ur Leukocyte Esterase Negative Urine RBC 5 - 10 H Urine WBC 2 - 5 Ur Epithelial Cells 4 - 5 Urine Bacteria Few Blood Type Antibody Screen BBK History Checked 01/13/19 11:13 WBC RBC Hgb Hct MCV MCH MCHC RDW Plt Count MPV Neut % (Auto) Lymph % (Auto) Moca % (Auto) Eos % (Auto) Baso % (Auto) Lymph # (Auto) Moca # (Auto) Eos # (Auto) Baso # (Auto) Absolute Neuts (auto) PT INR APTT Sodium Potassium Chloride Carbon Dioxide Anion Gap BUN Creatinine Est GFR ( Amer) Est GFR (Non-Af Amer) POC Glucose (mg/dL) 117 H Random Glucose Hemoglobin A1c Calcium Phosphorus Total Bilirubin AST ALT Alkaline Phosphatase Troponin I Total Protein Albumin Globulin Albumin/Globulin Ratio Triglycerides Cholesterol LDL Cholesterol Direct HDL Cholesterol Urine Color Urine Appearance Urine pH Ur Specific [place] Urine Protein Urine Glucose (UA) Urine Ketones Urine Blood Urine Nitrate Urine Bilirubin Urine Urobilinogen Ur Leukocyte Esterase Urine RBC Urine WBC Ur Epithelial Cells Urine Bacteria Blood Type Antibody Screen BBK History Checked Assessment & Plan - Assessment and Plan (Free Text) Assessment: 78M w/ ESRD consulted for AV access for future dialysis Plan: Renal US reviewed - no acute pathological findings Vein mapping Left arm limb alert Recommend outpatient follow up for elective AV fistula creation Patient will need permacath placement by IR to allow AV fistula maturation should he be on scheduled dialysis If patient needs emergent dialysis, recommend a temporary Shiley F/u further nephrology recommendations D/w Dr. Criss Matthews PGY1
[2019-01-13 13:19] LABS: BASO # 0.05 K/mm3 (0.0-2.0); BASO % 0.8 % (0.0-3.0); EOS # 0.1 (0.0-0.7); EOS % 1.3 % (1.5-5.0); HEMOGLOBIN 12.2 g/dL (14.0-18.0); LYMPH # 1.4 (1.2-3.4); LYMPH % 23.1 % (22.0-35.0); MEAN CORPUSCULAR HEMOGLOBIN 24.6 pg (25.0-35.0); MEAN CORPUSCULAR HGB CONC 32.8 g/dl (31.0-37.0); MEAN PLATELET VOLUME 9.2 fl (7.0-11.0); MONO # 0.6 (0.1-0.6); MONO % 9.7 % (1.0-6.0); RBC 4.96 10^6/uL (3.5-6.1); RED CELL DISTRIBUTION WIDTH 20.7 % (11.5-14.5); WHITE BLOOD COUNT 6.2 10^3/uL (4.5-11.0)
[2019-01-13 13:52] LABS: ALB/GLOB RATIO 1.1 (1.1-1.8); ALBUMIN 4.3 g/dL (3.0-4.8); ALT/SGPT < 6 U/L (7-56); AST/SGOT 27 U/L (17-59); BLOOD UREA NITROGEN 43 mg/dL (7-21); GFR NON-AFRICAN AMERICAN 7
--- NOTE | 2019-01-13 17:35 | US ---
PROCEDURE: Bilateral carotid artery duplex ultrasound HISTORY: Carotid stenosis PHYSICIAN(S): Gordon Mancera MD. TECHNIQUE: Duplex sonography and color-flow Doppler were used to evaluate the carotid bifurcations and limited segments of the vertebral arteries bilaterally. FINDINGS: There is mild to moderate smooth heterogeneous plaque noted at the carotid bifurcations bilaterally. The peak systolic velocity in the proximal right internal carotid artery is 88 cm/sec. This corresponds to a 20 to 39% proximal right ICA stenosis. Normal systolic velocities are noted in the proximal right external carotid artery. There is antegrade flow in the large right vertebral artery. The peak systolic velocity in the proximal left internal carotid artery is 74 cm/sec. This corresponds to a 20 to 39% proximal left ICA stenosis. Normal systolic velocities are noted in the proximal left external carotid artery. There is antegrade flow in the left vertebral artery. IMPRESSION: 1. Bilateral 20-39% proximal ICA stenoses. 2. Antegrade flow in both vertebral arteries.
--- NOTE | 2019-01-13 18:07 | CON ---
DATE: 01/13/2019 HISTORY OF PRESENT ILLNESS: This is a 78-year-old black male with past medical history of hypertension, atrial fibrillation, eng-stage kidney disease, coronary artery disease, status post stent placement and also gout and high cholesterol. Past surgical history status post resection of colon for adenocarcinoma several years ago. Came to the hospital with history of dizziness, left-sided facial tingling and numbness of the left arm. Denies any loss of consciousness or slurred speech. No facial droop. Also complained for headache previous evening. CT angiogram was negative. MRI of the brain showed small left pontine and frontal infarcts which appeared acute. The patient is still comfortable, called to evaluate the patient. PAST MEDICAL HISTORY: As above. ALLERGIES: ACETAMINOPHEN, METRONIDAZOLE, NEOMYCIN AND OXYCODONE. SOCIAL HISTORY: Does not smoke. Does not drink. PHYSICAL EXAMINATION: HEENT: Normocephalic and atraumatic. NECK: Supple. NEUROLOGIC: Awake, alert and oriented x3. No aphasia. Cranial nerve II through XII were tested. Pupil reactive. EOM intact. Visual field full. No facial asymmetry. Tongue midline. Motor examination, moves all the extremities equally. Tone normal. Deep tendon reflexes 1+. Both plantars are downgoing. Sensory appears intact. Cerebellar gait is deferred. IMPRESSION: Acute brainstem infarction and left frontal. Multiple medical problems such as atrial fibrillation, paroxysmal hypertension, end-stage renal disease, gout. Workup in progress. We will do the carotid Doppler and followup. Jefry Arnold MD
[2019-01-14] MEDS: Sodium Chloride 0.9% 1,000 ML IV SCH ×2 (05:50→17:37)
[2019-01-14 07:10] LABS: BASO # 0.04 K/mm3 (0.0-2.0); BASO % 0.8 % (0.0-3.0); EOS # 0.3 (0.0-0.7); EOS % 5.9 % (1.5-5.0); HEMOGLOBIN 11.6 g/dL (14.0-18.0); LYMPH # 1.4 (1.2-3.4); LYMPH % 28.1 % (22.0-35.0); MEAN CORPUSCULAR HEMOGLOBIN 23.9 pg (25.0-35.0); MEAN CORPUSCULAR HGB CONC 32.3 g/dl (31.0-37.0); MEAN PLATELET VOLUME 9.6 fl (7.0-11.0); MONO # 0.6 (0.1-0.6); RBC 4.85 10^6/uL (3.5-6.1); RED CELL DISTRIBUTION WIDTH 20.5 % (11.5-14.5); WHITE BLOOD COUNT 5.1 10^3/uL (4.5-11.0)
[2019-01-14 07:30] LABS: CALCIUM 7.4 mg/dL (8.4-10.5)
--- NOTE | 2019-01-14 07:30 | CON ---
DATE: 01/13/2019 REASON FOR CONSULTATION: Hyperkalemia, advanced chronic kidney disease, dizziness, weakness. HISTORY OF PRESENTING ILLNESS : A 78-year-old male, previously unknown to me, known to Dr. Zhao from our group, presented to the emergency room yesterday with complaints of feeling lightheaded, dizzy, numbness in his fingers, weakness in his lower extremities. In the emergency room, he was found to have accelerated hypertension. His pressure was 210/112. He was thought to have stroke in evolution. His lab work showed a potassium of 6.2, a BUN of 44 and creatinine of 8.8. Consultation was requested for acute kidney injury and hyperkalemia. The patient received albuterol, calcium gluconate, sodium bicarbonate, insulin, dextrose, Kayexalate in the emergency room. PAST MEDICAL AND SURGICAL HISTORY: Hypertension, CAD, PTCA and stent, AFib on Coumadin, DJD, chronic kidney disease stage V, hyperkalemia, colon cancer, partial colectomy, chemotherapy in 2013. FAMILY HISTORY: Hypertension in father. SOCIAL HISTORY: No smoking, no alcohol use, no IV drug abuse. ALLERGIES: BLEOMYCIN AND PERCOCET. MEDICATIONS: At home include aspirin 325, Cordarone 100, Coumadin 5, folic acid, sodium bicarbonate 650 b.i.d., Toprol XL 50, Veltassa. REVIEW OF SYSTEMS: All systems are reviewed, currently the patient feels better. He does not complain of any nausea or vomiting. He does not complain of any bad taste in the mouth. He does not complain of any shortness of breath. He denies any weight loss. PHYSICAL EXAMINATION: GENERAL: Elderly male, lying in bed. VITAL SIGNS: Blood pressure 150/95, heart rate 78, respiratory rate 20, temperature 98.2. HEENT: Normocephalic, atraumatic, positive pallor. NECK: Supple, no JVD. LUNGS: Bilateral equal entry, bilateral equal expansion. CARDIAC: S1, S2, regular rate and rhythm, no murmur, no rub. ABDOMEN: Distended, soft, nontender, bowel sounds present. EXTREMITIES: No lower extremity edema. No asterixis. Intake and output 840/1400. LABORATORY DATA: WBC 6.2, hemoglobin 12.2, hematocrit 37, platelets 263. Sodium 141, potassium 5.9, chloride 111, CO2 19, BUN 43, creatinine 8.0, glucose 89, calcium 8.0, phosphorus 4.3, magnesium 2.1, albumin 4.3. Renal ultrasound, right kidney 6.6 cm and atrophic. Left kidney 7.6 cm. Urinalysis, yellow ,clear, pH 6.0, specific gravity 1.025, protein 100, glucose 100, blood small, leukocyte esterase negative. CURRENT MEDICATIONS: Aspirin, Cordarone 100, Coumadin 5, folic acid 1 mg, sodium bicarbonate 650 b.i.d., normal saline at 100, Toprol XL 50. ASSESSMENT/PLAN: 1. Acute kidney injury superimposed on chronic kidney disease stage V? His creatinine was 8.0 in November as outpatient. 2. Chronic hyperkalemia, likely secondary to advanced chronic kidney disease. 3. Severe uncontrolled hypertension/hypertensive emergency. 4. No evidence of anemia of chronic kidney disease. 5. No evidence of secondary hyperparathyroidism? 6. History of colon cancer. 7. History of coronary artery disease/percutaneous transluminal coronary angioplasty and stent/atrial fibrillation, on anticoagulation. PLAN: 1. No indication for acute dialysis except for hyperkalemia, if potassium can be controlled medically, the patient can wait for dialysis till access is available. 2. Underlying chronic kidney disease stage V, needs to have AV access created. 3. Kayexalate 15 g one dose now. 4. Amlodipine 10 mg daily, first dose now. 5. Vein mapping. 6. Consult Dr. Kahn for AV access creation. 7. Continue to monitor closely. 8. Continue Cordarone. 9. Continue Coumadin. Mary Linda MD
[2019-01-14] MEDS: Metoprolol Succinate 50 mg XL Tab PO SCH (09:35)
--- NOTE | 2019-01-14 10:47 | CP.PCM.PCO ---
Physician Communication Note - Physician Communication Note Physician Communication Note: c/w asa and coumdain for stroke prevention. Bp control. PT eval
--- NOTE | 2019-01-14 15:45 | CP.PCM.PN ---
Subjective - Date & Time of Evaluation Date of Evaluation: 01/14/19 Time of Evaluation: 10:45 - Subjective Subjective: resting comfortably, NAD Objective - Vital Signs/Intake and Output Vital Signs (last 24 hours): Temp Pulse Resp BP Pulse Ox 97.7 F 75 18 148/84 99 01/14/19 12:00 01/14/19 12:00 01/14/19 12:00 01/14/19 09:35 01/14/19 06:00 Intake and Output: 01/14/19 01/14/19 06:59 18:59 Intake Total 1560 Output Total 725 Balance 835 - Medications Medications: Current Medications Amiodarone HCl (Cordarone) 100 mg PO QAM [facility] Last Admin: 01/14/19 09:34 Dose: 100 mg Amlodipine Besylate (Norvasc) 10 mg PO DAILY [facility] Last Admin: 01/14/19 09:34 Dose: 10 mg Aspirin (Aspirin) 325 mg PO DAILY [facility] Last Admin: 01/14/19 09:33 Dose: 325 mg Folic Acid (Folic Acid) 1 mg PO DAILY [facility] Last Admin: 01/14/19 09:34 Dose: 1 mg Sodium Chloride (Sodium Chloride 0.9%) 1,000 mls @ 100 mls/hr IV .Q10H [facility] Last Admin: 01/14/19 05:50 Dose: 100 mls/hr Metoprolol Succinate (Toprol Xl) 50 mg PO BRK [facility] Last Admin: 01/14/19 09:35 Dose: 50 mg Sodium Bicarbonate (Sodium Bicarbonate Tab) 650 mg PO BID [facility] Last Admin: 01/14/19 09:34 Dose: 650 mg Thiamine HCl (Vitamin B1 Tab) 100 mg PO DAILY [facility] Last Admin: 01/14/19 13:14 Dose: 100 mg Warfarin Sodium (Coumadin) 5 mg PO 1800 [facility]; Protocol Last Admin: 01/13/19 17:39 Dose: 5 mg - Labs Labs: 01/14/19 06:30 01/14/19 06:30 PT 26.3 SECONDS (9.4-12.5) H 01/12/19 14:24 INR 2.37 01/12/19 14:24 APTT 36.8 Seconds (26.9-38.3) 01/12/19 14:24 - Respiratory Exam Respiratory Exam: Clear to Ausculation Bilateral, NORMAL BREATHING PATTERN - Cardiovascular Exam Cardiovascular Exam: REGULAR RHYTHM - GI/Abdominal Exam GI & Abdominal Exam: Soft, Normal Bowel Sounds - Extremities Exam Extremities Exam: Normal Inspection - Neurological Exam Neurological Exam: Alert, Awake Neuro motor strength exam: Left Upper Extremity: 5, Right Upper Extremity: 5, Left Lower Extremity: 5, Right Lower Extremity: 5 - Skin Skin Exam: Dry, Warm Assessment and Plan (1) CVA (cerebral vascular accident) Status: Acute (2) ESRD (end stage renal disease) Status: Chronic (3) Hyperkalemia Status: Chronic - Assessment and Plan (Free Text) Plan: vasc surg consult for dialysis catheter, monitor K+
--- NOTE | 2019-01-14 17:59 | PN ---
DATE: 01/14/2019 SUBJECTIVE: The patient is seen lying in bed. He is awake, he is alert, he is comfortable. He is not in any kind of distress. He denies any nausea or vomiting. He denies any shortness of breath. PHYSICAL EXAMINATION GENERAL: Elderly male lying in bed. VITAL SIGNS: Blood pressure 148/84, heart rate 65, respiratory rate 18, temperature 97.7. HEENT: Normocephalic, atraumatic, positive pallor. NECK: Supple, no JVD. LUNGS: Bilateral equal air entry, bilateral equal expansion, no rales. CARDIAC: S1 and S2, regular rate and rhythm, no murmur, no rub. ABDOMEN: Soft, nondistended, nontender, bowel sounds present. EXTREMITIES: No lower extremity edema. INTAKE AND OUTPUT: 2860/725. LABORATORY DATA: WBC 5, hemoglobin 11.6, hematocrit 36, platelets 253. Sodium 139, potassium 5.4, chloride 113, CO2 15, BUN 38, creatinine 7.5, glucose 71, calcium 7.4. CURRENT MEDICATIONS: Aspirin, Cordarone, Coumadin, folic acid, amlodipine 10, sodium bicarbonate 650 b.i.d., Toprol-XL 50, thiamine. ASSESSMENT AND PLAN 1. Acute kidney injury superimposed on chronic kidney disease, stage V. 2. Hyperkalemia secondary to advanced chronic kidney disease. 3. Status post hypertensive emergency. 4. No evidence of anemia. 5. No evidence of hyperphosphatemia. 6. Hypertension. 7. History of colon cancer. PLAN 1. Currently, no uremic signs or symptoms. 2. The patient was in Hospital as outpatient for hyperkalemia. 3. We will arrange for 24-hour urine for protein and creatinine clearance. 4. Vascular surgery evaluation for AV access creation, no indication for PermCath. 5. Close followup with Dr. Fuentes as outpatient. Mary Linda MD
[2019-01-15] MEDS: Sodium Chloride 0.9% 1,000 ML IV SCH ×2 (05:48→08:01)
[2019-01-15] MEDS: Metoprolol Succinate 50 mg XL Tab PO SCH (08:36)
[2019-01-15 09:36] LABS: ALBUMIN 3.4 g/dL (3.0-4.8); CALCIUM 7.3 mg/dL (8.4-10.5)
--- NOTE | 2019-01-15 10:19 | CP.PCM.PN ---
Subjective - Date & Time of Evaluation Date of Evaluation: 01/15/19 Time of Evaluation: 09:30 - Subjective Subjective: some slurring of speech and right-sided facial droop noted this am, patient awake and alert, reports no weakness of extrems Objective - Vital Signs/Intake and Output Vital Signs (last 24 hours): Temp Pulse Resp BP Pulse Ox 97.9 F 65 18 179/87 H 100 01/15/19 06:00 01/15/19 08:36 01/15/19 06:00 01/15/19 08:36 01/14/19 18:00 Intake and Output: 01/15/19 01/15/19 06:59 18:59 Intake Total 2570 1200 Output Total 950 Balance 1620 1200 - Medications Medications: Current Medications Amiodarone HCl (Cordarone) 100 mg PO QAM [facility] Last Admin: 01/14/19 09:34 Dose: 100 mg Amlodipine Besylate (Norvasc) 10 mg PO DAILY [facility] Last Admin: 01/14/19 09:34 Dose: 10 mg Aspirin (Aspirin) 325 mg PO DAILY [facility] Last Admin: 01/14/19 09:33 Dose: 325 mg Folic Acid (Folic Acid) 1 mg PO DAILY [facility] Last Admin: 01/14/19 09:34 Dose: 1 mg Sodium Chloride (Sodium Chloride 0.9%) 1,000 mls @ 100 mls/hr IV .Q10H [facility] Last Admin: 01/15/19 08:01 Dose: 100 mls/hr Metoprolol Succinate (Toprol Xl) 50 mg PO BRK [facility] Last Admin: 01/15/19 08:36 Dose: 50 mg Sodium Bicarbonate (Sodium Bicarbonate Tab) 650 mg PO BID [facility] Last Admin: 01/14/19 17:44 Dose: 650 mg Thiamine HCl (Vitamin B1 Tab) 100 mg PO DAILY [facility] Last Admin: 01/14/19 13:14 Dose: 100 mg Warfarin Sodium (Coumadin) 5 mg PO 1800 [facility]; Protocol Last Admin: 01/14/19 17:44 Dose: 5 mg - Labs Labs: 01/14/19 06:30 01/15/19 08:30 PT 26.3 SECONDS (9.4-12.5) H 01/12/19 14:24 INR 2.37 01/12/19 14:24 APTT 36.8 Seconds (26.9-38.3) 01/12/19 14:24 - Respiratory Exam Respiratory Exam: Clear to Ausculation Bilateral, NORMAL BREATHING PATTERN - Cardiovascular Exam Cardiovascular Exam: REGULAR RHYTHM - GI/Abdominal Exam GI & Abdominal Exam: Soft, Normal Bowel Sounds - Extremities Exam Extremities Exam: Normal Inspection - Neurological Exam Neurological Exam: Alert, Awake Neuro motor strength exam: Left Upper Extremity: 5, Right Upper Extremity: 5, Left Lower Extremity: 5, Right Lower Extremity: 5 - Skin Skin Exam: Dry, Warm Assessment and Plan (1) CVA (cerebral vascular accident) Status: Acute (2) ESRD (end stage renal disease) Status: Chronic (3) Hyperkalemia Status: Chronic - Assessment and Plan (Free Text) Plan: neuro follow-up, repeat MRI of the brain
--- NOTE | 2019-01-15 14:49 | PN ---
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 SUBJECTIVE: The patient is seen and examined at bedside. Has a mild right nasolabial fold flattening, has mild right side weakness which is seen when he presented. There is no new features seen on neuro exam. Therefore I canceled the repeat MRI of the brain. The patient is stable, conversating well, very minimal dysarthria. The patient is on aspirin 81 and Coumadin for his stroke prevention. PAST MEDICAL HISTORY: History of AFib, coronary artery disease status post stents, degenerative disk disease, chronic kidney disease, colon cancer status post partial colectomy and chemotherapy in 2013. REVIEW OF SYSTEM: A 14-point review of systems is negative except as per the HPI. ALLERGIES: ACETAMINOPHEN, METRONIDAZOLE, NEOMYCIN AND OXYCODONE. FAMILY HISTORY: Noncontributory. SOCIAL HISTORY: No illicit drug abuse, smoking, or EtOH abuse. PHYSICAL EXAMINATION VITAL SIGNS: Temperature 98.2, pulse rate is 64, blood pressure 160/85, respiratory rate 16 and oxygen saturation 98%in room air. GENERAL: The patient was sitting up in bed. No acute distress. HEENT: Head is atraumatic and normocephalic. PERRLA. Extraocular muscles intact. NECK: Supple. No JVD. No adenopathy noted. LUNGS: Clear to auscultation. No adventitious sounds. HEART: S1 and S2. Normal rate and rhythm. No murmurs, rubs or gallop. ABDOMEN: Soft and nontender. Nondistended. Bowel sounds present. EXTREMITIES: No clubbing. No cyanosis. Peripheral pulses are 2+, felt bilaterally. NEUROLOGIC: The patient is alert, oriented to person, place, month and year. Speech is mild dysarthria, but no aphasia noted. Motor exam, has right upper and lower extremity 4++ to 5-/5 weakness and the left side is intact. Sensory exam: Light touch pinprick, proprioception, and vibration are intact. DTRs are 2+ throughout and 1 at both knees and ankles. Coordination: [id number] intact. No dysmetria noted. Gait is deferred for now. LABORATORY DATA: Sodium is 139, potassium 5, chloride 115, carbon dioxide 17, BUN of 41, creatinine 7.4 and magnesium is 75. IMPRESSION: Generalized weakness, dizziness, slurred speech and secondary to an acute small left pontine and left anterior frontal lobe infarct, secondary to diffuse atherosclerotic disease and uncontrolled hypertension. At this time, we recommend, 1. Keep systolic blood pressure 130s-140s and diastolic 70s. 2. Continue with Aspirin 81 and Coumadin tank filler the patient has history of stroke prevention. 3. Lipitor 40 for dyslipidemia. 4. Monitor BUN and creatinine, follow with Nephrology recommendations chronic kidney disease. 5. PT and OT and continue rehab. Thank you for this consult and followup. No need for repeat MRI at this time. Lico Arnold MD
[2019-01-15 16:11] LABS: URINE CREATININE 55.7 mg/dL
[2019-01-16] MEDS: Metoprolol Succinate 50 mg XL Tab PO SCH (08:10)
--- NOTE | 2019-01-16 12:18 | CP.PCM.PN ---
Subjective - Date & Time of Evaluation Date of Evaluation: 01/16/19 Time of Evaluation: 10:45 - Subjective Subjective: resting comfortably, NAD, right facial droop and mildly slurred speech without change Objective - Vital Signs/Intake and Output Vital Signs (last 24 hours): Temp Pulse Resp BP Pulse Ox 97.7 F 62 18 179/75 H 98 01/16/19 06:00 01/16/19 09:34 01/16/19 06:00 01/16/19 09:34 01/16/19 06:00 Intake and Output: 01/16/19 01/16/19 06:59 18:59 Intake Total 120 Output Total 800 Balance -680 - Medications Medications: Current Medications Amiodarone HCl (Cordarone) 100 mg PO QAM [facility] Last Admin: 01/16/19 09:34 Dose: 100 mg Amlodipine Besylate (Norvasc) 10 mg PO DAILY [facility] Last Admin: 01/16/19 09:33 Dose: 10 mg Aspirin (Aspirin) 325 mg PO DAILY [facility] Last Admin: 01/16/19 09:34 Dose: 325 mg Folic Acid (Folic Acid) 1 mg PO DAILY [facility] Last Admin: 01/16/19 09:34 Dose: 1 mg Metoprolol Succinate (Toprol Xl) 50 mg PO BRK [facility] Last Admin: 01/16/19 08:10 Dose: 50 mg Sodium Bicarbonate (Sodium Bicarbonate Tab) 650 mg PO BID [facility] Last Admin: 01/16/19 09:33 Dose: 650 mg Thiamine HCl (Vitamin B1 Tab) 100 mg PO DAILY [facility] Last Admin: 01/16/19 09:33 Dose: 100 mg Warfarin Sodium (Coumadin) 5 mg PO 1800 [facility]; Protocol Last Admin: 01/15/19 17:30 Dose: 5 mg - Labs Labs: 01/14/19 06:30 01/15/19 08:30 PT 26.3 SECONDS (9.4-12.5) H 01/12/19 14:24 INR 2.37 01/12/19 14:24 APTT 36.8 Seconds (26.9-38.3) 01/12/19 14:24 - Respiratory Exam Respiratory Exam: Clear to Ausculation Bilateral, NORMAL BREATHING PATTERN - Cardiovascular Exam Cardiovascular Exam: REGULAR RHYTHM - GI/Abdominal Exam GI & Abdominal Exam: Soft, Normal Bowel Sounds - Extremities Exam Extremities Exam: Normal Inspection - Neurological Exam Neurological Exam: Alert, Awake - Skin Skin Exam: Dry, Warm Assessment and Plan (1) CVA (cerebral vascular accident) Status: Acute (2) ESRD (end stage renal disease) Status: Chronic (3) Hyperkalemia Status: Chronic - Assessment and Plan (Free Text) Plan: continue neuro monitoring, for rehab
--- NOTE | 2019-01-17 03:13 | CP.PCM.PN ---
Subjective - Date & Time of Evaluation Date of Evaluation: 01/17/19 Time of Evaluation: 03:11 - Subjective Subjective: S:patient was seen at bedside. He is asleep. He received an order for benadryl from resident physician. Pertinent medical record was reviewed. O:VSS. Asleep. Not in distress. A:Insomnia. P:Benadryl 25 mg PO x1. Objective - Vital Signs/Intake and Output Vital Signs (last 24 hours): Temp Pulse Resp BP Pulse Ox 98.2 F 61 20 157/88 H 98 01/17/19 00:01 01/17/19 02:00 01/17/19 00:01 01/17/19 00:01 01/17/19 00:01 Intake and Output: 01/16/19 01/17/19 18:59 06:59 Intake Total 1140 Output Total 200 Balance 940 - Medications Medications: Current Medications Amiodarone HCl (Cordarone) 100 mg PO QAM [facility] Last Admin: 01/16/19 09:34 Dose: 100 mg Amlodipine Besylate (Norvasc) 10 mg PO DAILY [facility] Last Admin: 01/16/19 09:33 Dose: 10 mg Aspirin (Aspirin) 325 mg PO DAILY [facility] Last Admin: 01/16/19 09:34 Dose: 325 mg Folic Acid (Folic Acid) 1 mg PO DAILY [facility] Last Admin: 01/16/19 09:34 Dose: 1 mg Metoprolol Succinate (Toprol Xl) 50 mg PO BRK [facility] Last Admin: 01/16/19 08:10 Dose: 50 mg Sodium Bicarbonate (Sodium Bicarbonate Tab) 650 mg PO BID [facility] Last Admin: 01/16/19 18:05 Dose: 650 mg Thiamine HCl (Vitamin B1 Tab) 100 mg PO DAILY [facility] Last Admin: 01/16/19 09:33 Dose: 100 mg Warfarin Sodium (Coumadin) 5 mg PO 1800 [facility]; Protocol Last Admin: 01/16/19 18:05 Dose: 5 mg - Labs Labs: 01/14/19 06:30 01/15/19 08:30 PT 26.3 SECONDS (9.4-12.5) H 01/12/19 14:24 INR 2.37 01/12/19 14:24 APTT 36.8 Seconds (26.9-38.3) 01/12/19 14:24
[2019-01-17 07:21] LABS: BASO # 0.06 K/mm3 (0.0-2.0); EOS # 0.3 (0.0-0.7); EOS % 5.7 % (1.5-5.0); HEMOGLOBIN 11.6 g/dL (14.0-18.0); LYMPH # 1.7 (1.2-3.4); LYMPH % 28.7 % (22.0-35.0); MEAN CELL VOLUME 72.6 fl (80.0-105.0); MEAN CORPUSCULAR HEMOGLOBIN 23.9 pg (25.0-35.0); MEAN CORPUSCULAR HGB CONC 32.9 g/dl (31.0-37.0); MONO # 0.5 (0.1-0.6); MONO % 8.8 % (1.0-6.0); PLATELET COUNT 204 10^3/uL (120.0-450.0); RBC 4.86 10^6/uL (3.5-6.1); RED CELL DISTRIBUTION WIDTH 20.7 % (11.5-14.5); WHITE BLOOD COUNT 5.8 10^3/uL (4.5-11.0)
[2019-01-17 07:30] LABS: ALBUMIN 3.7 g/dL (3.0-4.8); ALT/SGPT < 6 U/L (7-56); AST/SGOT 23 U/L (17-59); BLOOD UREA NITROGEN 51 mg/dL (7-21); CALCIUM 7.9 mg/dL (8.4-10.5); GFR NON-AFRICAN AMERICAN 7
[2019-01-17] MEDS: Metoprolol Succinate 50 mg XL Tab PO SCH (07:54)
--- NOTE | 2019-01-17 09:15 | PN ---
DATE: 01/15/2019 SUBJECTIVE: The patient is seen lying in bed. He is awake, he is alert, he is comfortable. PHYSICAL EXAMINATION GENERAL: Elderly male lying in bed. VITAL SIGNS: Blood pressure 162/85, heart rate 64, respiratory rate 16, temperature 98.2. HEENT: Normocephalic, atraumatic, . NECK: Supple, no JVD. LUNGS: Bilateral equal air entry, bilateral equal expansion. CARDIAC: S1 and S2, regular rate and rhythm, no murmur, no rub. ABDOMEN: Obese, distended, soft, nontender, bowel sounds present. EXTREMITIES: No lower extremity edema. LABORATORY DATA: WBC 5, hemoglobin 11.6, hematocrit 35.9, platelets 253. Sodium 139, potassium 5.5, chloride 115, CO2 of 17, BUN 41, creatinine 7.4, glucose 75, calcium 7.3. CURRENT MEDICATIONS: Aspirin, Cordarone 100, Coumadin 5, folic acid, amlodipine 10, normal saline at 100, Toprol-XL 50. ASSESSMENT 1. Acute kidney injury superimposed on chronic kidney disease, stage V. 2. Hyperkalemia secondary to advanced chronic kidney disease. 3. Status post hypertensive emergency. 4. History of colon cancer. 5. Dysphasia. PLAN 1. Discontinue IV fluids. 2. Follow up 24-hour urine. 3. No plans for renal replacement therapy this admission. 4. Neuro followup. Mary Linda MD
--- NOTE | 2019-01-17 10:03 | CP.PCM.PCO ---
Physician Communication Note - Physician Communication Note Physician Communication Note: c/w asa/coumadin for stroke prevention. Rec Acute Rehab. thx
--- NOTE | 2019-01-17 12:22 | MRI ---
Date of service: 01/17/2019 PROCEDURE: MRI BRAIN WITHOUT CONTRAST HISTORY: CVA COMPARISON: 01/12/2019 TECHNIQUE: Multiplanar, multisequence MR images of the brain were obtained without intravenous contrast enhancement. FINDINGS: HEMORRHAGE: None DWI: There is an increase in the size of the left-sided pontine infarct. The previous study showed a small punctate 3 mm lesion. There is now a 7 x 12 mm area of restricted diffusion consistent with acute infarct. This is also seen on T2 and FLAIR images. There is a small punctate focus of restricted diffusion in the left frontal lobe which is unchanged. BRAIN PARENCHYMA: No mass effect or edema. Chronic microvascular changes are seen in the periventricular white matter. VENTRICLES: Unremarkable. No hydrocephalus. CRANIUM: Unremarkable. ORBITS: Grossly unremarkable. PARANASAL SINUSES/MASTOIDS: Clear VASCULAR SYSTEM: Skull base flow voids intact. OTHER FINDINGS: None. IMPRESSION: There is an increase in the size of the left-sided pontine infarct. The previous study showed a small punctate 3 mm lesion. There is now a 7 x 12 mm area of restricted diffusion consistent with acute infarct. This is also seen on T2 and FLAIR images.
--- NOTE | 2019-01-17 12:53 | CP.PCM.PN ---
Subjective - Date & Time of Evaluation Date of Evaluation: 01/17/19 Time of Evaluation: 09:15 - Subjective Subjective: speech somewhat slurred, right facial droop more prominent Objective - Vital Signs/Intake and Output Vital Signs (last 24 hours): Temp Pulse Resp BP Pulse Ox 98.8 F 58 L 18 140/82 98 01/17/19 12:00 01/17/19 12:00 01/17/19 12:00 01/17/19 12:00 01/17/19 06:00 Intake and Output: 01/17/19 01/17/19 06:59 18:59 Intake Total 1140 480 Output Total 200 200 Balance 940 280 - Medications Medications: Current Medications Amiodarone HCl (Cordarone) 100 mg PO QAM [facility] Last Admin: 01/17/19 09:07 Dose: 100 mg Amlodipine Besylate (Norvasc) 10 mg PO DAILY [facility] Last Admin: 01/17/19 09:07 Dose: 10 mg Aspirin (Aspirin) 325 mg PO DAILY [facility] Last Admin: 01/17/19 09:06 Dose: 325 mg Folic Acid (Folic Acid) 1 mg PO DAILY [facility] Last Admin: 01/17/19 09:07 Dose: 1 mg Metoprolol Succinate (Toprol Xl) 50 mg PO BRK [facility] Last Admin: 01/17/19 07:54 Dose: 50 mg Sodium Bicarbonate (Sodium Bicarbonate Tab) 650 mg PO BID [facility] Last Admin: 01/17/19 09:06 Dose: 650 mg Thiamine HCl (Vitamin B1 Tab) 100 mg PO DAILY [facility] Last Admin: 01/17/19 09:07 Dose: 100 mg Warfarin Sodium (Coumadin) 5 mg PO 1800 [facility]; Protocol Last Admin: 01/16/19 18:05 Dose: 5 mg - Labs Labs: 01/17/19 06:30 01/17/19 06:30 PT 26.3 SECONDS (9.4-12.5) H 01/12/19 14:24 INR 2.37 01/12/19 14:24 APTT 36.8 Seconds (26.9-38.3) 01/12/19 14:24 - Respiratory Exam Respiratory Exam: Clear to Ausculation Bilateral, NORMAL BREATHING PATTERN - Cardiovascular Exam Cardiovascular Exam: REGULAR RHYTHM - GI/Abdominal Exam GI & Abdominal Exam: Soft, Normal Bowel Sounds - Extremities Exam Extremities Exam: Normal Inspection - Neurological Exam Neurological Exam: Alert, Awake - Skin Skin Exam: Dry, Warm Assessment and Plan (1) CVA (cerebral vascular accident) Status: Acute (2) ESRD (end stage renal disease) Status: Chronic (3) Hyperkalemia Status: Chronic - Assessment and Plan (Free Text) Plan: repeat MRI, neuro follow-up, PT/speech eval
--- NOTE | 2019-01-18 00:45 | PN ---
DATE: 01/17/2019 SUBJECTIVE: The patient is seen lying in bed. He is awake, he is alert. He appears somewhat lethargic. He reports that he had some slurring of speech on Thursday. Currently his speech seems to be acceptable. He denies any nausea or vomiting. He denies any shortness of breath. PHYSICAL EXAMINATION GENERAL: An elderly male lying in bed. VITAL SIGNS: Blood pressure 148/84, heart rate 60, respiratory rate 18, temperature 98.2. HEENT: Normocephalic, atraumatic, positive pallor. NECK: Supple, no JVD. LUNGS: Bilateral equal entry, bilateral equal expansion, no rales. CARDIOPULMONARY: S1, S2. Regular rate and rhythm. No murmur, no rub. ABDOMEN: Soft, nondistended, nontender, bowel sounds present. EXTREMITIES: No lower extremity edema. LABORATORY DATA: WBC 5.8, hemoglobin 11.6, hematocrit 35.3, platelets 205. Sodium 138, potassium 5.4, chloride 112, CO2 of 19, BUN 51, creatinine 7.9, glucose 77, calcium 7.9, phosphorus 4.7, magnesium 1.8, albumin 3.7. A creatinine clearance of 6 mL/min. MRI of the brain without contrast done this morning; increase in size in the left-sided pontine infarct. The previous showed 3 mm lesion, now 7 x 12 mm lesion of restricted diffusion consistent with acute infarct. CURRENT MEDICATIONS: Aspirin 325 mg, Cordarone 100 mg, Coumadin 5 mg, folic acid 1 mg, amlodipine 10 mg, sodium bicarbonate 650 mg b.i.d., Toprol XL 50 mg, thiamine. ASSESSMENT 1. Acute left pontine infarct. 2. Severe hypertension. 3. Chronic kidney disease stage 5, now end-stage renal disease. 4. Hyperkalemia. 5. History of colon cancer. PLAN 1. In light of his creatinine clearance of 6 mL/min, we will request PermCath placement for initiation of dialysis. The patient will not be able to wait for AV access creation and maturation. 2. We will place consult for Dr. Gordon Mancera. 3. No need for acute dialysis today. 4. Check hepatitis profile. 5. Continue current antihypertensives. 6. Continue aspirin. 7. Outpatient dialysis to be arranged at [facility]. Mary Linda MD [facility] # [id number]
[2019-01-18] MEDS ORDERED: Lidocaine PF 2% (5 ml) Inj (For Cardiac Arrhy) ONE (08:11)
[2019-01-18] MEDS ORDERED: Midazolam 2 MG/2 ML VIAL ONE (08:53)
--- NOTE | 2019-01-18 10:54 | VASCULAR ---
PROCEDURE: Ultrasound and fluoroscopic tunneled right IJ dialysis catheter. CLINICAL HISTORY: ESRD PHYSICIAN(S): Gordon Mancera M.D. TECHNIQUE: The relative risks and indications for the procedure were explained to the patient and informed written consent obtained. The patient was placed supine on the arteriography table and the right neck/chest was prepped and draped in the usual sterile fashion. 1% Xylocaine was used to anesthetize the skin and soft tissues at the puncture site. Conscious sedation and monitoring were provided throughout the procedure by a nurse. Under direct ultrasound guidance, the rightinternal jugular vein was punctured with a micropuncture set. A 0.035 Glidewire was advanced into the IVC. Sequential dilatation was performed with subsequent placement of a 28cm Nextgen catheter with its tip in the right atrium. A retrograde tunnel below the right clavicle was performed. The catheter was trimmed and the hub attached. Both ports aspirate and inject easily. The catheter was secured and a dressing applied. The patient tolerated the procedure well. IMPRESSION: 1. Ultrasound and fluoroscopically placed right IJ tunneled dialysis catheter.
[2019-01-18] MEDS: Metoprolol Succinate 50 mg XL Tab PO SCH (11:01)
--- NOTE | 2019-01-18 11:56 | CP.PCM.PN ---
Subjective - Date & Time of Evaluation Date of Evaluation: 01/18/19 Time of Evaluation: 08:40 - Subjective Subjective: NAD Objective - Vital Signs/Intake and Output Vital Signs (last 24 hours): Temp Pulse Resp BP Pulse Ox 97.5 F L 54 L 20 143/81 97 01/18/19 10:21 01/18/19 11:01 01/18/19 10:21 01/18/19 11:01 01/18/19 10:21 Intake and Output: 01/18/19 01/18/19 06:59 18:59 Intake Total 720 Output Total 2 Balance 718 - Medications Medications: Current Medications Amiodarone HCl (Cordarone) 100 mg PO QAM [facility] Last Admin: 01/18/19 11:00 Dose: Not Given Amlodipine Besylate (Norvasc) 10 mg PO DAILY [facility] Last Admin: 01/18/19 11:00 Dose: 10 mg Aspirin (Aspirin) 325 mg PO DAILY [facility] Last Admin: 01/18/19 10:59 Dose: 325 mg Folic Acid (Folic Acid) 1 mg PO DAILY [facility] Last Admin: 01/18/19 11:00 Dose: 1 mg Metoprolol Succinate (Toprol Xl) 50 mg PO BRK [facility] Last Admin: 01/18/19 11:01 Dose: Not Given Sodium Bicarbonate (Sodium Bicarbonate Tab) 650 mg PO BID [facility] Last Admin: 01/18/19 11:01 Dose: 650 mg Thiamine HCl (Vitamin B1 Tab) 100 mg PO DAILY [facility] Last Admin: 01/18/19 11:01 Dose: 100 mg Warfarin Sodium (Coumadin) 5 mg PO 1800 [facility]; Protocol Last Admin: 01/17/19 17:08 Dose: 5 mg - Labs Labs: 01/17/19 06:30 01/17/19 06:30 PT 26.3 SECONDS (9.4-12.5) H 01/12/19 14:24 INR 2.37 01/12/19 14:24 APTT 36.8 Seconds (26.9-38.3) 01/12/19 14:24 - Respiratory Exam Respiratory Exam: NORMAL BREATHING PATTERN - Cardiovascular Exam Cardiovascular Exam: REGULAR RHYTHM - GI/Abdominal Exam GI & Abdominal Exam: Soft, Normal Bowel Sounds Assessment and Plan (1) CVA (cerebral vascular accident) Status: Acute (2) ESRD (end stage renal disease) Status: Chronic (3) Hyperkalemia Status: Chronic - Assessment and Plan (Free Text) Plan: for HD catheter placement today Dr. Gordon Mancera
[2019-01-18 12:25] LABS: HEPATITIS B SURFACE AG Negative (NEGATIVE)
[2019-01-18 12:43] LABS: HEPATITIS C ANTIBODY NEGATIVE (NEGATIVE)
--- NOTE | 2019-01-18 13:37 | PN ---
DATE: 01/18/2019 SUBJECTIVE: The patient is currently seen sitting up in bed just having completed lunch. The patient had a PermCath placed in the right chest wall earlier today. Consents were signed for his first dialysis. Dialysis will take place in the early afternoon. Discussion with the patient about outpatient dialysis both the patient and I agree that the patient should go to the outpatient center at [facility] in [place] to dialyze on Thursday, Thursday and Thursday schedule. Family is in agreement with this decision. MEDICATIONS: Medication list reviewed. The patient is currently on aspirin, amiodarone, Coumadin, folic acid, Norvasc, sodium bicarbonate tablets, Toprol, vitamin B1. OBJECTIVE: INTAKE/OUTPUT: Intake is 2039, output is 202. VITAL SIGNS: Blood pressure currently is 143/81 with a pulse of 54, temperature 97.5, respiratory rate 20, oxygen saturation is 97%. HEENT: Shows him to be normocephalic, atraumatic. Conjunctivae pink. Sclerae are nonicteric. NECK: Supple. No neck vein distention. CHEST: Clear to auscultation and percussion. No rales, rhonchi or wheezing. CARDIOVASCULAR: Shows a regular rate and rhythm with soft systolic murmur left lower sternal border. No S3, no S4, no rub. ABDOMEN: Soft. Bowel sounds normal. No rebound, guarding or masses. EXTREMITIES: Show no lower extremity cyanosis, clubbing or edema with intact lower extremity pulses. NEUROLOGIC: Shows mild weakness of the right upper and right lower extremity. The patient does have difficulty with his speech pattern. LABORATORY DATA AND IMAGING STUDIES: CBC; white blood cell count 5.8, hemoglobin 11.6 with a platelet count of 204,000. Coags show a INR of 2.37 with a PT of 26.3 from the day of admission to the hospital. Chemistries from yesterday showed a BUN of 51 with a creatinine of 7.9. Potassium is 5.4. Calcium is 7.9 with a phosphorus level of 4.7. Liver enzymes are normal. A 24-hour urine creatinine clearance was 6 mL per minute. Microbiology, no specimens were sent. MRI of the brain done on admission showed a left-sided pontine infarct. ASSESSMENT: 1. Chronic kidney disease stage V with progression to end-stage renal disease with mild hyperkalemia and mild metabolic acidosis. Lengthy discussion with the patient by Dr. Linad yesterday and by me today. It is doubtful in the time for the patient to initiate dialysis. He has maintained creatinines in the upper 6 range for very long period of time and has done relatively well being able to work a part-time job. He now agrees together with his family that dialysis is necessary and the patient will receive his first dialysis treatment today. 2. Status post acute left pontine infarct with mild right-sided weakness and mild speech impediment. 3. History of severe hypertension. Blood pressure control is improved. 4. Mild hyperkalemia with metabolic acidosis. This should resolve with dialysis. 5. History of arteriosclerotic heart disease status post percutaneous transluminal coronary angioplasty stent history of paroxysmal atrial fibrillation. The patient remains on chronic anticoagulation. 6. History of colon cancer status post partial colectomy, status post chemotherapy approximately 6 years ago. 7. History of secondary hyperparathyroidism. Phosphorus level is mildly elevated at 4.7. The patient should be on a renal diet and we will start binder therapy. His calcium level was 7.9, so the patient will be started on PhosLo. PLAN: 1. Initiation of hemodialysis today. 2. Intake forms to be sent to [facility] to setup outpatient dialysis. 3. Continue Neuro follow-up and the patient perhaps will require physical therapy and speech therapy. 4. Continue renal diet. 5. Continue chronic anticoagulation, history of atrial fibrillation. 6. May discontinue sodium bicarbonate supplements. 7. Start PhosLo. 8. Lengthy discussion with the patient and his family regarding the need for outpatient dialysis. Jacob Zhao MD MTDD
[2019-01-18 15:51] LABS: BASO # 0.03 K/mm3 (0.0-2.0); BASO % 0.3 % (0.0-3.0); EOS # 0.1 (0.0-0.7); EOS % 1.2 % (1.5-5.0); HEMOGLOBIN 10.1 g/dL (14.0-18.0); LYMPH # 1.9 (1.2-3.4); LYMPH % 18.1 % (22.0-35.0); MEAN CELL VOLUME 72.4 fl (80.0-105.0); MEAN CORPUSCULAR HGB CONC 33.1 g/dl (31.0-37.0); MONO # 0.9 (0.1-0.6); MONO % 8.8 % (1.0-6.0); PLATELET COUNT 147 10^3/uL (120.0-450.0); RBC 4.21 10^6/uL (3.5-6.1); RED CELL DISTRIBUTION WIDTH 20.6 % (11.5-14.5); WHITE BLOOD COUNT 10.6 10^3/uL (4.5-11.0)
[2019-01-18 16:00] LABS: INR 2.79; PARTIAL THROMBOPLASTIN TIME 36.1 Seconds (26.9-38.3)
--- NOTE | 2019-01-18 16:02 | PCM.RRT ---
<Benny Lewis Nichol - Last Filed: 01/18/19 16:32> SURFACE WATER MANAGER Nurse Assessment - Situation Date: 01/18/19 Time SURFACE WATER MANAGER was called: 15:11 SURFACE WATER MANAGER Responder Arrival Time: 15:11 SURFACE WATER MANAGER Location:: [facility] SURFACE WATER MANAGER Reason for Call: Change in Mental Status SURFACE WATER MANAGER Called By: RN - IV IV Inserted during SURFACE WATER MANAGER?: No - Respiratory Oxygen Delivery Method: Nasal Cannula @L/min Oxygen Flow Rate: 3 Received Nebulizer Treatments:: No Was the Patient Ventilated with Bag/Mask 100% O2?: No Secretions Suctioned?: No Was the Patient Intubated?: No Was the Patient Placed on a Ventilator?: No - Diagnostic Test Ordered EKG: Yes Chest X-Ray: Yes Other Diagnostic Test Ordered: MRI Brain - Stat Labs Ordered SURFACE WATER MANAGER Stat Labs Ordered: CBC, BMP CPR started during SURFACE WATER MANAGER?: No - Vital Signs Vital Sign: Rapid Response Vital Sign Blood Pressure 103/68 Pulse Rate 83 Respiratory Rate 18 - Finger Stick Blood Glucose Finger Stick Blood Glucose: 98 - Time SURFACE WATER MANAGER Ended Time SURFACE WATER MANAGER Ended: 15:37 - Recommendations 5) SURFACE WATER MANAGER Level of Care Recommendations: Remain in current setting Notifications: Attending Physician I.Reason for SURFACE WATER MANAGER - A) Acute Change in Patient: (Select all that apply): Acute change in mental status - Neurological Status (Select all that apply): Alert, Responsive, Verbal, Disoriented, Lethargic, Weakness - Respiratory Oxygen Delivery Method: Nasal Cannula @L/min Oxygen Flow Rate: 3 - Constitutional Appears: No Acute Distress, Chronically Ill - Head Head Exam: ATRAUMATIC, NORMAL INSPECTION - Eyes Eye Exam: EOMI, Normal appearance, PERRL - Respiratory Exam Respiratory Exam: Clear to Ausculation Bilateral, NORMAL BREATHING PATTERN. absent: Rales, Rhonchi, Wheezes - Cardiovascular Exam Cardiovascular Exam: REGULAR RHYTHM, +S1, +S2 - GI/Abdominal Exam GI & Abdominal Exam: Soft, Normal Bowel Sounds. absent: Distended, Tenderness - Neurological Exam Neurological Exam: Alert, Altered, Awake - Extremities Exam Extremities Exam: Full ROM, Normal Inspection Plan - Assessment of Findings&Treatment Plan Mr Sanders was 35 minutes into his very first HD treatment when he became unresponsive per nurse and began to vomit (non-bloody). An SURFACE WATER MANAGER was called at this time. Upon initial evaluation patient was awake but confused, he would inappropriately respond to verbal commands - he was not able to track my fingers and would not squeeze my hands when prompted. A EKG performed did not show ST changes. His vitals were normal - however earlier during HD his BP dropped to 94/62. His blood glucose was 98. NIHSS score was 10. Clinically he improved after 10 minutes as his answers became more appropriate and he was able to follow my commands. NIHSS score after 10 minutes was 7. Patient had a recent new stoke on 01/12/19. #Weakness -possibly 2/2 to precipitous drop in BP during first HD treatment vs expansion of old stroke vs new stroke vs TIA -clinical appears to be back at baseline 15 minutes after episode of emesis -neurologist recommends stat MRI w/o contrast -cans vacuum tester recommends resumption of HD after MRI if patient is stable -cbc/cmp/INR -cxr -npo for now -speech and swallow eval once stable -Family was contacted -Primary attending was contacted -Neurologist was contacted -Multi Punch Operator was contacted -Hospitalist was present during SURFACE WATER MANAGER <Samreen Mc - Last Filed: 01/19/19 18:19> SURFACE WATER MANAGER Nurse Assessment - Vital Signs Vital Sign: Rapid Response Vital Sign Blood Pressure 103/68 Pulse Rate 83 Respiratory Rate 18 Attending/Attestation - Attestation I have personally seen and examined this patient.: Yes I have fully participated in the care of the patient.: Yes I have reviewed all pertinent clinical information, including history, physical exam and plan: Yes Notes (Text): 01/19/19 17:58 Attending note; Patient seen and examined with resident during rapid response. Patient was apparently lethargic during dialysis. Patient also had an episode of vomiting and mild hypotension. Vitals stable. Case discussed with neurologist in detail. Stat MRI ordered since the patient has recent Worsening of pontine stroke. Dialysis stopped. Patient will be transferred to MRI. Stat CBC CMP and INR ordered. Case discussed with PMD and nephrology by resident. Family informed about change in status made resident Further care per PMD. Addendum; Case discussed with neurologist again MRI did not show any acute changes. Patient will continue dialysis. Avoid hypotension. Dialysis unit informed.
[2019-01-18 16:06] LABS: ALB/GLOB RATIO 1.1 (1.1-1.8); ALBUMIN 3.5 g/dL (3.0-4.8); CALCIUM 7.7 mg/dL (8.4-10.5)
--- NOTE | 2019-01-18 16:20 | MRI ---
Date of service: 01/18/2019 PROCEDURE: MRI BRAIN WITHOUT CONTRAST HISTORY: Worsening in mentation, reevaluate the infarct COMPARISON: MRI 01/17/2019 TECHNIQUE: Multiplanar, multisequence MR images of the brain were obtained without intravenous contrast enhancement. FINDINGS: HEMORRHAGE: None DWI: There is no change in the appearance of the acute infarct in the left side of the antoine. This measures 12 mm in length by 5 mm height by 7 mm wide. BRAIN PARENCHYMA: No mass effect or edema. Chronic microvascular changes are seen in the periventricular white matter. VENTRICLES: Unremarkable. No hydrocephalus. CRANIUM: Unremarkable. ORBITS: Grossly unremarkable. PARANASAL SINUSES/MASTOIDS: Clear VASCULAR SYSTEM: Skull base flow voids intact. OTHER FINDINGS: None. IMPRESSION: There is no change in the appearance of the acute infarct in the left side of the antoine. This measures 12 mm in length by 5 mm height by 7 mm wide.
--- NOTE | 2019-01-18 17:29 | RAD ---
Date of service: 01/18/2019 HISTORY: r/o aspiration COMPARISON: No prior. FINDINGS: LUNGS: No active pulmonary disease. PLEURA: No significant pleural effusion identified, no pneumothorax apparent. CARDIOVASCULAR: No radiographic findings to suggest acute or significant cardiovascular disease. Venous access catheter in satisfactory position. Atherosclerotic calcifications identified primarily aortic arch. OSSEOUS STRUCTURES: No significant abnormalities. VISUALIZED UPPER ABDOMEN: Normal. OTHER FINDINGS: None. IMPRESSION: No active disease.
--- NOTE | 2019-01-18 18:34 | PN ---
DATE: 01/18/2019 NEUROLOGY FOLLOWUP CHIEF COMPLAINT: Fall, status post acute pontine infarct. SUBJECTIVE: The patient was seen and examined on dialysis. Apparently there was a rapid response called because the patient was transiently unresponsive. He had some vomiting. However, an MRI of the brain was ordered stat and showed no change in the appearance of the acute infarct in the left antoine measuring 12 mm x 5 mm height x 7 mm wide. He is following commands now. He has found to have low systolic and diastolic blood pressure 90/63. His case was discussed with son at bedside. PAST MEDICAL HISTORY: AFib, coronary artery disease status post stents, degenerative disc disease, chronic kidney disease, colon cancer status post colectomy and chemotherapy in 2013. REVIEW OF SYSTEM: A 14-point review of systems is negative except as per the HPI. FAMILY HISTORY: Noncontributory. SOCIAL HISTORY: No illicit drug abuse, smoking, or EtOH abuse. PHYSICAL EXAMINATION: VITAL SIGNS: Temperature 98.2, pulse rate 55, blood pressure 160/74, respiration 18 and oxygen saturation 96% via nasal cannula. GENERAL: The patient was seen up in bed, in no acute distress. HEENT: Head is atraumatic and normocephalic. PERRLA. Extraocular muscles intact. NECK: Supple. No JVD. No adenopathy noted. LUNGS: Clear to auscultation. No adventitious sounds. HEART: S1 and S2, normal rate and rhythm. No murmurs, rubs or gallops. ABDOMEN: Soft and nontender. Nondistended. Bowel sounds present. EXTREMITIES: No clubbing. No cyanosis. Peripheral pulses 2+ bilaterally. NEUROLOGIC: The patient is lethargic, but oriented to person and place, not much to month or year. Recall after 5 minutes is 0/3. Speech is dysarthric, but no aphasia noted. Motor exam, has right upper extremity and lower extremity 4++/5, weakness on the right side and left side is intact. Sensory exam; decreased light touch to pinprick up to the calves bilaterally. DTRs are 2+ throughout and 1 at both knees and ankles. Coordination; [id number] intact. No dysmetria noted. Gait is deferred for now. LABORATORY DATA: Sodium is 138, potassium 4.6, chloride 107, carbon dioxide 22, BUN of 47, creatinine of 6.5 and random glucose of 100. IMPRESSION: 1. Generalized weakness and lethargy with slurred speech secondary to an acute left pontine and left anterior frontal infarct secondary to diffuse atherosclerotic disease and uncontrolled hypertension. He had acute rapid response today when he became more lethargic and vomited. We repeated an MRI of the brain stat, it showed no change in the pontine infarct on the left measuring 12 mm in length x 5 mm in height x 7 mm wide. He had low systolic and diastolic blood pressure, doing dialysis which was 90/63, which resulted in a transient cerebral hypoperfusion to the brain causing worsening lethargy. At this time, keep his systolic pressure between 130's to 140's mmHg and diastolic 70's and 80's. 2. Continue with aspirin 81 mg and Coumadin for stroke prevention. 3. Lipitor 40 mg p.o. daily for dyslipidemia. 4. Physical therapy/occupational therapy evaluation and acute rehabilitation. Thank you for this consultation. Lico Arnold MD
--- NOTE | 2019-01-18 21:42 | CARD ---
APPROVED REPORT Date of service: 01/18/2019 EKG Measurement Heart [id number] MI [id number] <Conclusion> Normal sinus rhythm with sinus arrhythmia Voltage criteria for left ventricular hypertrophy Nonspecific ST abnormality Abnormal ECG
[2019-01-19] MEDS: Metoprolol Succinate 50 mg XL Tab PO SCH (10:23)
--- NOTE | 2019-01-19 10:55 | CP.PCM.PN ---
Subjective - Date & Time of Evaluation Date of Evaluation: 01/19/19 Time of Evaluation: 08:45 - Subjective Subjective: above events noted, had HD yesterday with probable vasovagal episode, awake and alert at present, mild slurred speech and right facial droop without change from previous Objective - Vital Signs/Intake and Output Vital Signs (last 24 hours): Temp Pulse Resp BP Pulse Ox 98.6 F 68 19 137/72 100 01/19/19 06:00 01/19/19 10:23 01/19/19 06:00 01/19/19 10:23 01/19/19 06:00 Intake and Output: 01/19/19 01/19/19 06:59 18:59 Intake Total 240 Balance 240 - Medications Medications: Current Medications Amiodarone HCl (Cordarone) 100 mg PO QAM [facility] Last Admin: 01/19/19 10:23 Dose: 100 mg Amlodipine Besylate (Norvasc) 10 mg PO DAILY [facility] Last Admin: 01/19/19 10:23 Dose: 10 mg Aspirin (Aspirin) 325 mg PO DAILY [facility] Last Admin: 01/19/19 10:24 Dose: 325 mg Calcium Acetate (Phoslo) 667 mg PO WM [facility] Last Admin: 01/19/19 10:23 Dose: 667 mg Folic Acid (Folic Acid) 1 mg PO DAILY [facility] Last Admin: 01/19/19 10:24 Dose: 1 mg Metoprolol Succinate (Toprol Xl) 50 mg PO BRK [facility] Last Admin: 01/19/19 10:23 Dose: 50 mg Thiamine HCl (Vitamin B1 Tab) 100 mg PO DAILY [facility] Last Admin: 01/19/19 10:22 Dose: 100 mg Warfarin Sodium (Coumadin) 5 mg PO 1800 [facility]; Protocol Last Admin: 01/17/19 17:08 Dose: 5 mg - Labs Labs: 01/18/19 15:46 01/18/19 15:46 PT 31.0 SECONDS (9.4-12.5) H 01/18/19 15:46 INR 2.79 01/18/19 15:46 APTT 36.1 Seconds (26.9-38.3) 01/18/19 15:46 - Respiratory Exam Respiratory Exam: Clear to Ausculation Bilateral, NORMAL BREATHING PATTERN - Cardiovascular Exam Cardiovascular Exam: REGULAR RHYTHM - GI/Abdominal Exam GI & Abdominal Exam: Soft, Normal Bowel Sounds - Extremities Exam Extremities Exam: Normal Inspection - Neurological Exam Neurological Exam: Alert, Awake, Motor Sensory Deficit - Skin Skin Exam: Dry, Warm Assessment and Plan (1) CVA (cerebral vascular accident) Status: Acute (2) ESRD (end stage renal disease) Status: Chronic (3) Hyperkalemia Status: Resolved - Assessment and Plan (Free Text) Plan: for transfer to subacute rehab
[2019-01-20 04:23] VITALS: TEMP 98
[2019-01-20 06:05] VITALS: RESP 19; O2SAT 97
[2019-01-20] MEDS: Metoprolol Succinate 50 mg XL Tab PO SCH (09:15)
--- NOTE | 2019-01-20 09:16 | PN ---
DATE: 01/19/2019 SUBJECTIVE: The patient is seen sitting in chair. He is awake. He is alert. He is comfortable. He still has some deviation of angle of his mouth on the left side, some slurring of speech. PHYSICAL EXAMINATION: GENERAL: Elderly male sitting in chair. VITAL SIGNS: Blood pressure 138/75 heart rate 82, respiratory rate 20, and temperature 98.2. HEENT: Normocephalic and atraumatic. Positive pallor. NECK: Supple. No JVD. LUNGS: Bilateral equal air entry, bilateral equal expansion. No rales. CARDIAC: S1 and S2. Regular rate and rhythm. No murmur. No rub. ABDOMEN: Soft, nondistended, and nontender. Bowel sounds present. EXTREMITIES: No lower extremity edema. LABORATORY DATA: WBC 10.6, hemoglobin 10, hematocrit 30.5, and platelets 147. Sodium 138, potassium 4.6, chloride 107, CO2 of 22, BUN 47, creatinine 6.5, glucose 100, calcium 7.7, phosphorus 3.6, magnesium 1.9, and albumin 3.5. ASSESSMENT: 1. Chronic kidney disease stage V, now end-stage renal disease. 2. Status post severe hypertension/hypertensive emergency. 3. Acute cerebrovascular accident. 4. Anemia of chronic kidney disease. 5. History of colon cancer. PLAN: 1. We will arrange for dialysis again today. The patient was dialyzed yesterday for the first time for 2.5 hours. 2. Needs outpatient dialysis to be arranged at [facility]. 3. No objection to discharge to rehab after dialysis. Mary Linda MD
[2019-01-20 09:17] VITALS: BP 132/76
[2019-01-20 10:27] VITALS: PULSE 64
--- NOTE | 2019-01-21 05:42 | DS ---
HOSPITAL COURSE: The patient is a 78-year-old male admitted through the emergency department on 01/12/2019 with an acute cerebrovascular accident. Serial MRI showed a left pontine infarct. The patient was seen in consultation by Neurology, Dr. Arnold. His hospital course was complicated by development of hyperkalemia. The patient has a history of end-stage kidney disease and a dialysis catheter was placed by Dr. Gordon Mancera and the patient underwent hemodialysis. The patient has some residual expressive aphasia with some slurred speech and right facial droop. He is in stable condition for discharge to rehab at [facility]. PHYSICAL EXAMINATION: VITAL SIGNS: Blood pressure 132/76, pulse 66, the patient is afebrile, and respiratory rate is 14. HEENT: Head is normocephalic and atraumatic. Pupils equal, round, and reactive to light. Extraocular movements intact. There is a right facial droop. LUNGS: Clear. HEART: Regular rate and rhythm. ABDOMEN: Soft and nontender. Bowel sounds are normoactive. EXTREMITIES: Without cyanosis, clubbing, or edema. NEUROLOGIC: The patient has some slurred speech. There may be some 4+/5 motor strength of the right upper extremity, all other 5/5. IMPRESSION: 1. Left pontine cerebrovascular accident. 2. End-stage kidney disease, on hemodialysis. 3. Hypertension, hypertensive cardiovascular disease. 4. Coronary artery disease. 5. Paroxysmal atrial fibrillation. 6. History of adenocarcinoma of the colon, status post resection. PLAN: The patient is just discharged today to rehab at [facility] on the following medications; Coumadin 5 mg daily, aspirin 325 mg daily, amiodarone 100 mg daily, amlodipine 10 mg daily, and folic acid 1 mg daily. He will be maintained on a heart healthy diet. Activity is as per the rehab facility and he will be followed as an outpatient upon discharge. KEARA Garcia MD
== END 2019-01-20 12:54 | DRG 64 ==
LOC: ED 12:27 → ERH 15:52 → 2RSO 21:15
PROVIDERS: ADMIT Internal Medicine; ATTEND Internal Medicine
PROC: 05HM33Z Insertion of Infusion Device into Right Internal Jugular Vein, Percutaneous Approach (ICD-10-PCS; principal; 2019-01-18)
PROC: 5A1D70Z Performance of Urinary Filtration, Intermittent, Less than 6 Hours Per Day (ICD-10-PCS; 2019-01-18)
PROC: B513ZZA Fluoroscopy of Right Jugular Veins, Guidance (ICD-10-PCS; 2019-01-18)
PROC: B543ZZA Ultrasonography of Right Jugular Veins, Guidance (ICD-10-PCS; 2019-01-18)
PROC: 5A1D70Z Performance of Urinary Filtration, Intermittent, Less than 6 Hours Per Day (ICD-10-PCS; 2019-01-19)
DX: I63.9 Cerebral infarction, unspecified (principal); N18.6 End stage renal disease; G45.0 Vertebro-basilar artery syndrome; N17.9 Acute kidney failure, unspecified; I16.1 Hypertensive emergency; E87.2 Acidosis; N25.81 Secondary hyperparathyroidism of renal origin; I13.11 Hypertensive heart and chronic kidney disease without heart failure, with stage 5 chronic kidney disease, or end stage renal disease; R29.810 Facial weakness; I10 Essential (primary) hypertension; Z79.01 Long term (current) use of anticoagulants; Z79.899 Other long term (current) drug therapy; R29.700 NIHSS score 0; E87.5 Hyperkalemia; Z95.5 Presence of coronary angioplasty implant and graft; I25.10 Atherosclerotic heart disease of native coronary artery without angina pectoris; Z85.038 Personal history of other malignant neoplasm of large intestine; D63.1 Anemia in chronic kidney disease; E78.00 Pure hypercholesterolemia, unspecified; E78.5 Hyperlipidemia, unspecified; G47.00 Insomnia, unspecified; I48.0 Paroxysmal atrial fibrillation; K21.9 Gastro-esophageal reflux disease without esophagitis; M10.9 Gout, unspecified; M19.90 Unspecified osteoarthritis, unspecified site; R47.01 Aphasia; R47.02 Dysphasia; Z82.49 Family history of ischemic heart disease and other diseases of the circulatory system; Z90.49 Acquired absence of other specified parts of digestive tract; Z92.21 Personal history of antineoplastic chemotherapy; Z99.2 Dependence on renal dialysis